=== PATIENT | female | born 1930 | race Caucasian/White ===

== ENCOUNTER 2016-09-30 17:28 | Emergency (ER) | payer OTHER ==
[~2016-09-30] VITALS: Ht 157.5 cm; Wt 60.1 kg
[~2016-09-30 17:28] MED LIST: ASPCH81 PO; ATOR10TA88 PO; CLTP PO; ESCI10TA17 PO; GLC500 PO; IBUP-1050 PO; PANT40TA PO
[2016-09-30 17:40] VITALS: TEMP 36.7; Ht 157.5 cm; Wt 60.1 kg
--- NOTE | 2016-09-30 18:03 | EMERGENCY ROOM VISIT NOTE ---
History Report prepared by Juan Diegoibe: Mary Henley Under the Supervision of: Dr. Facundo Fernandez M.D. First contact with patient: 17:45 Chief Complaint: NAUSEA Stated Complaint: NAUSEA, LIGHTHEADED, DIZZY Nursing Triage Summary: Pt arrives to ER via BLS from [facility] in [place]. Pt was seen there today for N/V and dizziness upon standing that began this AM. EMS pt "doubled up" on her medications yesterday, but were not told which medications. Upon arrival pt has no complaints. Pt has hx of dementia. AO to person and place. History of Present Illness The patient is a 85 year old female who presents to the Emergency Room with complaints of persistent generalized illness starting this morning. Per nursing staff, the patient arrived by EMS from [facility] in [place]. She was being seen there for nausea, vomiting and dizziness. The patient states that she feels "light headed" and her dizziness has not subsided. She denies any abdominal pain. Per nursing staff, the patient has a history of dementia. Source of History: patient Onset: This morning Quality: other (Generalized illness) Timing: other (persistent) Associated Symptoms: + nausea, + vomiting, + diarrhea, No abdominal pain Review of Systems See HPI for pertinent positives & negatives. A total of 10 systems reviewed and were otherwise negative. Past Medical & Surgical Medical Problems: (1) Dementia (2) Diverticulosis Colon (W/O Ment Of Hemorrhage) (3) Esophageal Reflux (4) Hypertension Nos (5) Sciatica Surgical Problems: (1) Hypertension Nos Family History No pertinent family history. Social History Smoking Status: Never Smoker Marital Status: Housing Status: lives with family Occupation Status: retired Current/Historical Medications Scheduled Atorvastatin (Atorvastatin Calcium), 20 MG PO DAILY Donepezil HCl (Donepezil HCl), 10 MG PO DAILY Lisinopril (Lisinopril), 10 MG PO DAILY Montelukast Sod (Montelukast Sodium), 10 MG PO DAILY Sulfa/Trimethoprim (Bactrim Ds 800MG/160MG), 0.5 TAB PO BID Allergies Coded Allergies: Estrogens (Verified Allergy, Unknown, `, 09/19/10) Nitrofurantoin (Verified Allergy, Unknown, Unknown, 09/30/16) Penicillins (Verified Allergy, Unknown, `, 09/19/10) Physical Exam Vital Signs Date Time Temp Pulse Resp B/P (MAP) Pulse Ox O2 Delivery O2 Flow Rate FiO2 09/30/16 20:04 61 20 129/54 99 09/30/16 20:00 61 20 129/54 99 Room Air 09/30/16 19:00 65 18 122/78 99 Room Air 09/30/16 18:04 99 Room Air 09/30/16 17:59 99 Room Air 09/30/16 17:59 62 20 132/60 99 67 125/67 80 113/58 09/30/16 17:44 65 09/30/16 17:40 36.7 67 18 122/57 99 Room Air Physical Exam GENERAL: Patient is a healthy-appearing well-nourished female HEAD: Normocephalic atraumatic EYES: Ocular movements intact pupils equal and react to light OROPHARYNX mucous membranes are moist no exudates present no erythema or edema present NECK: Supple no nuchal rigidity CHEST: Good equal expansion LUNGS: Clear and equal to auscultation CARDIAC: Normal S1 and S2 ABDOMEN: Soft nontender no guarding BACK: No CVA tenderness EXTREMITIES: No pain upon palpation normal muscle strength in all groups no clubbing cyanosis or edema NEURO: Patient is following commands and answering questions appropriately. Alert and oriented x3 Cranial Nerves 2-12 grossly intact Medical Decision & Procedures ER Provider Diagnostic Interpretation: X-ray results as stated below per interpretation by me and the radiologist: CHEST ONE VIEW PORTABLE HISTORY: 85 years-old Female acute weakness with nausea and dizziness. COMPARISON: Chest radiograph 10/27/2010, CTA chest 10/27/2010 TECHNIQUE: Portable upright AP view of the chest FINDINGS: Cardiomediastinal and hilar silhouettes are within normal limits. There is atherosclerosis of the aorta. Minimal pleural parenchymal biapical scarring is redemonstrated. No pneumothorax, pleural effusion or focal airspace consolidation. The bones appear to be grossly intact. Multilevel endplate spurring is seen throughout the spine. IMPRESSION: No acute cardiopulmonary process. The above report was generated using voice recognition software. It may contain grammatical, syntax or spelling errors. Electronically signed by: Óscar Valle M.D. Laboratory Results 09/30/16 17:55 Red Blood Count 4.37, Mean Corpuscular Volume 86.3, Mean Corpuscular Hemoglobin 29.5, Mean Corpuscular Hemoglobin Concent 34.2, Mean Platelet Volume 9.3, Neutrophils (%) (Auto) 52.9, Lymphocytes (%) (Auto) 35.4, Monocytes (%) (Auto) 9.4, Eosinophils (%) (Auto) 1.6, Basophils (%) (Auto) 0.5, Neutrophils # (Auto) 3.03, Lymphocytes # (Auto) 2.03, Monocytes # (Auto) 0.54, Eosinophils # (Auto) 0.09, Basophils # (Auto) 0.03 09/30/16 17:55 Test 09/30/16 17:55 09/30/16 18:00 09/30/16 18:08 White Blood Count 5.73 K/uL (4.8-10.8) Red Blood Count 4.37 M/uL (4.2-5.4) Hemoglobin 12.9 g/dL (12.0-16.0) Hematocrit 37.7 % (37-47) Mean Corpuscular Volume 86.3 fL (80-100) Mean Corpuscular Hemoglobin 29.5 pg (25-34) Mean Corpuscular Hemoglobin Concent 34.2 g/dl (32-36) Platelet Count 188 K/uL (130-400) Mean Platelet Volume 9.3 fL (7.4-10.4) Neutrophils (%) (Auto) 52.9 % Lymphocytes (%) (Auto) 35.4 % Monocytes (%) (Auto) 9.4 % Eosinophils (%) (Auto) 1.6 % Basophils (%) (Auto) 0.5 % Neutrophils # (Auto) 3.03 K/uL (1.4-6.5) Lymphocytes # (Auto) 2.03 K/uL (1.2-3.4) Monocytes # (Auto) 0.54 K/uL (0.11-0.59) Eosinophils # (Auto) 0.09 K/uL (0-0.5) Basophils # (Auto) 0.03 K/uL (0-0.2) RDW Standard Deviation 42.1 fL (36.4-46.3) RDW Coefficient of Variation 13.3 % (11.5-14.5) Immature Granulocyte % (Auto) 0.2 % Immature Granulocyte # (Auto) 0.01 K/uL (0.00-0.02) Prothrombin Time 10.8 SECONDS (9.0-12.0) Prothromb Time International Ratio 1.0 (0.9-1.1) Anion Gap 10.0 mmol/L (3-11) Est Creatinine Clear Calc Drug Dose 26.1 ml/min Estimated GFR () 47.1 Estimated GFR (Non- 40.6 BUN/Creatinine Ratio 12.2 (10-20) Calcium Level 9.4 mg/dl (8.5-10.1) Total Bilirubin 0.5 mg/dl (0.2-1) Direct Bilirubin 0.1 mg/dl (0-0.2) Aspartate Amino Transf (AST/SGOT) 31 U/L (15-37) Alanine Aminotransferase (ALT/SGPT) 56 U/L (12-78) Alkaline Phosphatase 77 U/L (45-117) Total Creatine Kinase 31 U/L (26-192) Creatine Kinase MB 0.9 ng/ml (0.5-3.6) Creatine Kinase MB Ratio 2.9 (0-3.0) Troponin I 0.024 ng/ml (0-0.045) Total Protein 7.2 gm/dl (6.4-8.2) Albumin 3.7 gm/dl (3.4-5.0) Thyroid Stimulating Hormone (TSH) 4.380 uIu/ml (0.300-4.500) Urine Color YELLOW Urine Appearance CLEAR (CLEAR) Urine pH 8.5 (4.5-7.5) Urine Specific [place] 1.006 (1.000-1.030) Urine Protein NEG (NEG) Urine Glucose (UA) NEG (NEG) Urine Ketones NEG (NEG) Urine Occult Blood 1+ (NEG) Urine Nitrite NEG (NEG) Urine Bilirubin NEG (NEG) Urine Urobilinogen NEG (NEG) Urine Leukocyte Esterase TRACE (NEG) Urine WBC (Auto) 1-5 /hpf (0-5) Urine RBC (Auto) 0-4 /hpf (0-4) Urine Hyaline Casts (Auto) 0 /lpf (0-5) Urine Epithelial Cells (Auto) 5-10 /lpf (0-5) Urine Bacteria (Auto) NEG (NEG) Bedside Glucose 96 mg/dl (70-90) Labs reviewed by ED physician. Medications Administered Medications (Trade) Dose Ordered Sig/Johanne Route Start Time Stop Time Status Last Admin Dose Admin Sodium Chloride 1,000 ml @ 999 mls/hr Q1H1M STAT IV 09/30/16 18:07 09/30/16 19:07 DC 09/30/16 18:31 999 MLS/HR ECG Indication: other (generalized illness) Rate (beats per minute): 64 Rhythm: atrial flutter (new onset) Findings: T-wave inversion (in the lateral leads), no acute ischemic change ED Course 1747: Past medical records reviewed. The patient was evaluated in room A2. A complete history and physical examination was performed. 1806: Ordered Sodium Chloride 1000 ml @ 999 mls/hr. 1937: Upon reexamination the patient is resting. I discussed results and treatment plan with the patient. She verbalizes agreement and understanding. The patient is ready for discharge. Medical Decision Differential diagnosis: Etiologies such as metabolic, infection, hypo/hyperglycemia, electrolyte abnormalities, cardiac sources, intracerebral event, toxicologic, neurologic, as well as others were entertained. This is an 85-year-old female who presents emergency department complaining of dizziness however upon arrival to the emergency department the patient has no complaints. Her son is concerned that the patient may have a urinary tract infection. An IV was established, patient given normal saline bolus. The patient does not have any evidence of infection in her urine and her son is comfortable taking her home at this point. The patient does not wish to be admitted. I believe that is reasonable. Patient was in agreement with the treatment plan. Impression Primary Impression: Dehydration Scribe Attestation The scribe's documentation has been prepared under my direction and personally reviewed by me in its entirety. I confirm that the note above accurately reflects all work, treatment, procedures, and medical decision making performed by me. Departure Information Dispostion Home / Self-Care Referrals Jil Gandhi N.P. (PCP) Forms HOME CARE DOCUMENTATION FORM, IMPORTANT VISIT INFORMATION Patient Instructions ED Dehydration, My [facility] Additional Instructions Follow up with PCP Cultures are usually available in 48 hours Increase fluid intake next 48 hours You have been examined and treated today on an emergency basis only. This is not a substitute for, or an effort to provide, complete comprehensive medical care. It is impossible to recognize and treat all injuries or illnesses in a single emergency department visit. It is therefore important that you follow up closely with your PCP. Call as soon as possible for an appointment. Thank you for your time and consideration. I look forward to speaking with you again soon. Please don't hesitate to call us if you have any questions.
[2016-09-30 18:04] VITALS: O2SAT 99
[2016-09-30] MEDS ORDERED: SODIUM CHLORIDE 0.9% 1000ML 1,000 ML IV STA (18:07)
[2016-09-30 18:09] LABS: BASO % 0.5 %; BASO ABS # 0.03 K/uL (0-0.2); COMPLETE YES; EOS % 1.6 %; HEMATOCRIT 37.7 % (37-47); IG% 0.2 %; LYMPH % 35.4 %; LYMPH ABS # 2.03 K/uL (1.2-3.4); MEAN CELL VOLUME 86.3 fL (80-100); MEAN CORPUSCULAR HEMOGLOBIN 29.5 pg (25-34); MEAN CORPUSCULAR HGB CONC 34.2 g/dl (32-36); MEAN PLATELET VOLUME 9.3 fL (7.4-10.4); MONO % 9.4 %; NEUT % 52.9 %; PLATELET COUNT 188 K/uL (130-400); RED BLOOD COUNT 4.37 M/uL (4.2-5.4); WHITE BLOOD COUNT 5.73 K/uL (4.8-10.8)
--- NOTE | 2016-09-30 18:20 | DIAGNOSTIC IMAGING REPORT ---
CHEST ONE VIEW PORTABLE HISTORY: 85 years-old Female acute weakness with nausea and dizziness. COMPARISON: Chest radiograph 10/27/2010, CTA chest 10/27/2010 TECHNIQUE: Portable upright AP view of the chest FINDINGS: Cardiomediastinal and hilar silhouettes are within normal limits. There is atherosclerosis of the aorta. Minimal pleural parenchymal biapical scarring is redemonstrated. No pneumothorax, pleural effusion or focal airspace consolidation. The bones appear to be grossly intact. Multilevel endplate spurring is seen throughout the spine. IMPRESSION: No acute cardiopulmonary process. The above report was generated using voice recognition software. It may contain grammatical, syntax or spelling errors. Electronically signed by: Óscar Valle M.D. 09/30/2016 6:19 PM Dictated Date/Time: 09/30/2016 6:17 PM
[2016-09-30 18:24] LABS: BUN/CREATININE RATIO 12.2 (10-20); CALCIUM 9.4 mg/dl (8.5-10.1); CREATININE 1.2 mg/dl (0.60-1.20); POTASSIUM 3.8 mmol/L (3.5-5.1)
[2016-09-30 18:25] LABS: PROTHROMBIN TIME (PATIENT) 10.8 SECONDS (9.0-12.0)
[2016-09-30] MEDS ORDERED: LPT/20 PO (18:28)
[2016-09-30] MEDS ORDERED: ARC10 PO (18:28)
[2016-09-30] MEDS ORDERED: LISI-461 PO (18:28)
[2016-09-30] MEDS ORDERED: SNG10 PO (18:28)
[2016-09-30 18:35] LABS: CKMB/CK RATIO 2.9 (0-3.0); THYROID STIMULATING HORMONE 4.38 uIu/ml (0.300-4.500)
[2016-09-30] MEDS ORDERED: SULF800T23 PO (18:38)
[2016-09-30 18:46] LABS: URINE APPEARANCE CLEAR (CLEAR); URINE BILIRUBIN NEG (NEG); URINE COLOR YELLOW; URINE NITRITE NEG (NEG); URINE PH 8.5 (4.5-7.5); URINE SPECIFIC GRAVITY 1.006 (1.000-1.030); UROBILINOGEN NEG (NEG)
[2016-09-30 19:04] LABS: MANUAL MICROSCOPIC REQUIRED? NO; REVIEW REQ? NO
[2016-09-30 20:04] VITALS: BP 129/54; PULSE 61; O2SAT 99
== END 2016-09-30 20:08 | disposition home or self-care (01) ==
LOC: EDBD 17:28 → C.EDA 17:28
DX: E86.0 Dehydration (principal); R11.2 Nausea with vomiting, unspecified; R42 Dizziness and giddiness; I10 Essential (primary) hypertension

== ENCOUNTER 2016-11-02 19:57 | Emergency (ER) | payer OTHER ==
[~2016-11-02] VITALS: Ht 157.5 cm; Wt 60.5 kg
[~2016-11-02 19:57] MED LIST changes: +ARC10 PO; -ASPCH81 PO; -ATOR10TA88 PO; -CLTP PO; -ESCI10TA17 PO; -GLC500 PO; -IBUP-1050 PO; +LISI-461 PO; +LPT/20 PO; -PANT40TA PO; +SNG10 PO; +SULF800T23 PO
[2016-11-02 20:06] VITALS: TEMP 36.6; Ht 157.5 cm; Wt 60.5 kg
[2016-11-02] MEDS ORDERED: CALCTAB5 PO (20:17)
[2016-11-02] MEDS ORDERED: MULTCHW PO (20:17)
[2016-11-02] MEDS ORDERED: CHOL1000 PO (20:17)
[2016-11-02] MEDS ORDERED: COEN1CAP7 PO (20:17)
[2016-11-02] MEDS ORDERED: ZNTT/150 PO (20:18)
[2016-11-02] MEDS ORDERED: ONDANSETRON INJ 2 MG/ML 2 ML VIAL IV STA (20:26)
[2016-11-02] MEDS ORDERED: SODIUM CHLORIDE 0.9% 500ML 500 ML IV STA (20:26)
--- NOTE | 2016-11-02 20:29 | EMERGENCY ROOM VISIT NOTE ---
History Report prepared by Mirella: Juana See Under the Supervision of: Dr. Facundo Fernandez M.D. First contact with patient: 20:18 Chief Complaint: ABDOMINAL PAIN Stated Complaint: SICK IN STOMACH Nursing Triage Summary: Pt c/o nausea, diarrhea since 1700 lance. shaking, weak. "We think she's dehydrated again". Seen in ED about a month ago for the same. History of Present Illness The patient is a 85 year old female who presents to the Emergency Room with complaints of constant nausea beginning this afternoon. The patient states that she has not been feeling well today and has been having some diarrhea, dizziness , and lightheadedness. She reports that she was seen here 1 month ago for dehydration and had similar symptoms. She notes that she has not been drinking as much water in the last few days. The patient denies any vomiting and abdominal pain. The patient's son reports that she recently saw her fitter welder that noted a slight palpitation. Source of History: patient, family Onset: today Position: other (global) Quality: other (nausea) Timing: constant Associated Symptoms: + diarrhea, No vomiting, No abdominal pain Note: Pt notes dizziness, and lightheadedness. Review of Systems See HPI for pertinent positives & negatives. A total of 10 systems reviewed and were otherwise negative. Past Medical & Surgical Medical Problems: (1) Dementia (2) Diverticulosis Colon (W/O Ment Of Hemorrhage) (3) Esophageal Reflux (4) Hypertension Nos (5) Sciatica Surgical Problems: (1) Hypertension Nos Family History No pertinent family history stated. Social History Smoking Status: Never Smoker Marital Status: Housing Status: lives with family Occupation Status: retired Current/Historical Medications Scheduled Atorvastatin (Atorvastatin Calcium), 20 MG PO DAILY Calcium Carbonate (Caltrate 600), 1,500 MG PO DAILY Cholecalciferol (Vitamin D3), 1,000 INTER.UNIT PO BID Coenzyme Q10 (Ubidecarenone) (Coq10), 200 MG PO DAILY Donepezil HCl (Donepezil HCl), 10 MG PO DAILY Lisinopril (Lisinopril), 10 MG PO DAILY Montelukast Sod (Montelukast Sodium), 10 MG PO DAILY Multiple Vitamins W/ Minerals (Centrum Silver), 1 TAB PO DAILY Ondasetron Odt (Zofran Odt), 4 MG SL Q6H Ranitidine (Zantac), 150 MG PO QAM Sulfa/Trimethoprim (Bactrim Ds 800MG/160MG), 0.5 TAB PO QAM Allergies Coded Allergies: Estrogens (Verified Allergy, Unknown, `, 11/02/16) Nitrofurantoin (Verified Allergy, Unknown, Unknown, 11/02/16) Penicillins (Verified Allergy, Unknown, `, 11/02/16) Physical Exam Vital Signs Date Time Temp Pulse Resp B/P (MAP) Pulse Ox O2 Delivery O2 Flow Rate FiO2 11/02/16 22:51 82 18 116/49 97 11/02/16 21:43 66 20 158/80 97 Room Air 11/02/16 21:05 67 11/02/16 20:54 68 16 133/53 98 Room Air 11/02/16 20:42 95 Room Air 11/02/16 20:06 36.6 77 16 133/67 96 Room Air Physical Exam GENERAL: Patient is a healthy-appearing well-nourished female HEAD: Normocephalic atraumatic EYES: Ocular movements intact pupils equal and react to light OROPHARYNX mucous membranes are moist no exudates present no erythema or edema present NECK: Supple no nuchal rigidity CHEST: Good equal expansion LUNGS: Clear and equal to auscultation CARDIAC: Normal S1 and S2 ABDOMEN: Soft nontender no guarding BACK: No CVA tenderness EXTREMITIES: No pain upon palpation normal muscle strength in all groups no clubbing cyanosis or edema NEURO: Patient is following commands and answering questions appropriately. Alert and oriented x3 Cranial Nerves 2-12 grossly intact Medical Decision & Procedures ER Provider Diagnostic Interpretation: X-ray results as stated below per interpretation by me and the radiologist: CHEST AND ABDOMEN 2 VIEWS FINDINGS: The lungs are clear. The cardiomediastinal silhouette is within normal limits. There is no pneumoperitoneum or pneumatosis. The bowel gas pattern is unremarkable. No evidence for bowel obstruction. A 7 mm calcification overlying the upper pole the right kidney. This likely represents a stone. There is also suggestion of a 3 mm calcification overlying the upper pole the left kidney. This may also represent a small stone. No ureteral calculi. Changes within the lower lumbar spine. IMPRESSION: No acute cardiopulmonary process. No evidence for bowel obstruction. Bilateral nephrolithiasis. No ureteral calculi. Electronically signed by: Amado Oviedo M.D. 11/02/2016 9:54 PM Dictated Date/Time: 11/02/2016 9:50 PM Laboratory Results 11/02/16 20:35 Red Blood Count 4.25, Mean Corpuscular Volume 88.2, Mean Corpuscular Hemoglobin 28.5, Mean Corpuscular Hemoglobin Concent 32.3, Mean Platelet Volume 9.3, Neutrophils (%) (Auto) 49.8, Lymphocytes (%) (Auto) 34.9, Monocytes (%) (Auto) 11.4, Eosinophils (%) (Auto) 2.9, Basophils (%) (Auto) 0.8, Neutrophils # (Auto ) 2.59, Lymphocytes # (Auto) 1.81, Monocytes # (Auto) 0.59, Eosinophils # (Auto ) 0.15, Basophils # (Auto) 0.04 11/02/16 20:35 Test 11/02/16 20:35 11/02/16 21:35 White Blood Count 5.19 K/uL (4.8-10.8) Red Blood Count 4.25 M/uL (4.2-5.4) Hemoglobin 12.1 g/dL (12.0-16.0) Hematocrit 37.5 % (37-47) Mean Corpuscular Volume 88.2 fL (80-100) Mean Corpuscular Hemoglobin 28.5 pg (25-34) Mean Corpuscular Hemoglobin Concent 32.3 g/dl (32-36) Platelet Count 193 K/uL (130-400) Mean Platelet Volume 9.3 fL (7.4-10.4) Neutrophils (%) (Auto) 49.8 % Lymphocytes (%) (Auto) 34.9 % Monocytes (%) (Auto) 11.4 % Eosinophils (%) (Auto) 2.9 % Basophils (%) (Auto) 0.8 % Neutrophils # (Auto) 2.59 K/uL (1.4-6.5) Lymphocytes # (Auto) 1.81 K/uL (1.2-3.4) Monocytes # (Auto) 0.59 K/uL (0.11-0.59) Eosinophils # (Auto) 0.15 K/uL (0-0.5) Basophils # (Auto) 0.04 K/uL (0-0.2) RDW Standard Deviation 43.6 fL (36.4-46.3) RDW Coefficient of Variation 13.6 % (11.5-14.5) Immature Granulocyte % (Auto) 0.2 % Immature Granulocyte # (Auto) 0.01 K/uL (0.00-0.02) Anion Gap 4.0 mmol/L (3-11) Est Creatinine Clear Calc Drug Dose 38.6 ml/min Estimated GFR () 68.5 Estimated GFR (Non- 59.1 BUN/Creatinine Ratio 19.2 (10-20) Calcium Level 9.0 mg/dl (8.5-10.1) Total Bilirubin 0.3 mg/dl (0.2-1) Direct Bilirubin 0.1 mg/dl (0-0.2) Aspartate Amino Transf (AST/SGOT) 42 U/L (15-37) Alanine Aminotransferase (ALT/SGPT) 56 U/L (12-78) Alkaline Phosphatase 86 U/L (45-117) Total Creatine Kinase 29 U/L (26-192) Creatine Kinase MB 0.9 ng/ml (0.5-3.6) Creatine Kinase MB Ratio 3.1 (0-3.0) Troponin I 0.038 ng/ml (0-0.045) Total Protein 6.9 gm/dl (6.4-8.2) Albumin 3.5 gm/dl (3.4-5.0) Lipase 136 U/L (73-393) Urine Color YELLOW Urine Appearance CLEAR (CLEAR) Urine pH 6.5 (4.5-7.5) Urine Specific [place] 1.011 (1.000-1.030) Urine Protein NEG (NEG) Urine Glucose (UA) NEG (NEG) Urine Ketones NEG (NEG) Urine Occult Blood NEG (NEG) Urine Nitrite NEG (NEG) Urine Bilirubin NEG (NEG) Urine Urobilinogen NEG (NEG) Urine Leukocyte Esterase TRACE (NEG) Urine WBC (Auto) 1-5 /hpf (0-5) Urine RBC (Auto) 0-4 /hpf (0-4) Urine Hyaline Casts (Auto) 0 /lpf (0-5) Urine Epithelial Cells (Auto) 5-10 /lpf (0-5) Urine Bacteria (Auto) NEG (NEG) Labs reviewed by ED physician. Medications Administered Medications (Trade) Dose Ordered Sig/Johanne Route Start Time Stop Time Status Last Admin Dose Admin Sodium Chloride 500 ml @ 999 mls/hr Q31M STAT IV 11/02/16 20:26 11/02/16 20:56 DC 11/02/16 20:42 999 MLS/HR Ondansetron HCl (Zofran Inj) 4 mg NOW STAT IV 11/02/16 20:26 11/02/16 20:28 DC 11/02/16 20:40 4 MG Ondansetron HCl (ZOFRAN ODT 4MG Home Pack) 1 homepack UD ONCE PO 11/02/16 22:45 11/02/16 22:46 DC 11/02/16 22:45 1 HOMEPACK ECG Indication: abdominal pain Rate (beats per minute): 69 Rhythm: normal sinus Findings: no acute ischemic change, no ectopy ED Course 2018: Past medical records reviewed. The patient was evaluated in room C8. A complete history and physical examination was performed. 2025: Zofran Inj 4mg IV, Sodium Chloride 500 ml @ 999 mls/hr IV. 2244: Ondansetron HCl 1 homepack PO. 2236: Upon reexamination the patient is doing well. I discussed results and treatment plan with the patient. She verbalizes agreement and understanding. The patient is ready for discharge. Medical Decision Differential diagnosis: Etiologies such as appendicitis, diverticulitis, PUD, biliary pathology, UTI, pancreatitis, obstruction, mesenteric ischemia, aortic pathology, infections, inflammatory bowel disease, renal colic, as well as others were entertained. This is a 85-year-old feel who presents emergency department complaining of nausea. Serial abdominal examinations were performed on the patient in the emergency department and at no time did the patient exhibit surgical abdomen. In addition the patient is afebrile and does not have an elevation in her white blood count cell count. She has a normal renal profile normal liver profile normal EKG normal CK-MB and troponin. The patient was given a fluid bolus here in the emergency department and started on Zofran. Repeat examination revealed much improvement the patient's symptoms. I do feel that the patient can be safely discharged home for follow-up with her primary care physician. Both patient and family were in agreement with the treatment plan. Medication Reconcilliation Current Medication List: was personally reviewed by me Blood Pressure Screening Patient's blood pressure: Elevated blood pressure Blood pressure disposition: Elevated BP felt to be situational Impression Primary Impression: Nausea Scribe Attestation The scribe's documentation has been prepared under my direction and personally reviewed by me in its entirety. I confirm that the note above accurately reflects all work, treatment, procedures, and medical decision making performed by me. Departure Information Dispostion Home / Self-Care Prescriptions Ondasetron Odt (ZOFRAN ODT) 4 Mg Tab 4 MG SL Q6H for Nausea, #6 TAB Prov: Facundo Fernandez MD 11/02/16 Referrals Jil Gandhi N.P. (PCP) Forms HOME CARE DOCUMENTATION FORM, IMPORTANT VISIT INFORMATION Patient Instructions ED Nausea Vomiting, My [facility] Additional Instructions You were found to have an elevated blood pressure today (>120 sytolic or >90 diastolic). Per medicare guidelines, you need to follow up with this blood pressure screening with your Primary Care Physician (PCP). For a new PCP call [phone]. You have been examined and treated today on an emergency basis only. This is not a substitute for, or an effort to provide, complete comprehensive medical care. It is impossible to recognize and treat all injuries or illnesses in a single emergency department visit. It is therefore important that you follow up closely with Dr Rich. Call as soon as possible for an appointment. Thank you for your time and consideration. I look forward to speaking with you again soon. Please don't hesitate to call us if you have any questions.
[2016-11-02 20:42] VITALS: O2SAT 95
[2016-11-02 20:45] LABS: BASO % 0.8 %; BASO ABS # 0.04 K/uL (0-0.2); COMPLETE YES; EOS % 2.9 %; HEMATOCRIT 37.5 % (37-47); IG% 0.2 %; LYMPH % 34.9 %; LYMPH ABS # 1.81 K/uL (1.2-3.4); MEAN CELL VOLUME 88.2 fL (80-100); MEAN CORPUSCULAR HEMOGLOBIN 28.5 pg (25-34); MEAN CORPUSCULAR HGB CONC 32.3 g/dl (32-36); MEAN PLATELET VOLUME 9.3 fL (7.4-10.4); MONO % 11.4 %; NEUT % 49.8 %; PLATELET COUNT 193 K/uL (130-400); RED BLOOD COUNT 4.25 M/uL (4.2-5.4); WHITE BLOOD COUNT 5.19 K/uL (4.8-10.8)
[2016-11-02 21:09] LABS: BUN/CREATININE RATIO 19.2 (10-20); CREATININE 0.88 mg/dl (0.60-1.20); POTASSIUM 3.8 mmol/L (3.5-5.1)
[2016-11-02 21:14] LABS: CKMB/CK RATIO 3.1 (0-3.0)
--- NOTE | 2016-11-02 21:56 | DIAGNOSTIC IMAGING REPORT ---
CHEST AND ABDOMEN 2 VIEWS HISTORY: Pt c/o nausea COMPARISON: Chest 09/30/2016. FINDINGS: The lungs are clear. The cardiomediastinal silhouette is within normal limits. There is no pneumoperitoneum or pneumatosis. The bowel gas pattern is unremarkable. No evidence for bowel obstruction. A 7 mm calcification overlying the upper pole the right kidney. This likely represents a stone. There is also suggestion of a 3 mm calcification overlying the upper pole the left kidney. This may also represent a small stone. No ureteral calculi. Changes within the lower lumbar spine. IMPRESSION: No acute cardiopulmonary process. No evidence for bowel obstruction. Bilateral nephrolithiasis. No ureteral calculi. Electronically signed by: Amado Oviedo M.D. 11/02/2016 9:54 PM Dictated Date/Time: 11/02/2016 9:50 PM
[2016-11-02 22:03] LABS: URINE APPEARANCE CLEAR (CLEAR); URINE BILIRUBIN NEG (NEG); URINE COLOR YELLOW; URINE NITRITE NEG (NEG); URINE PH 6.5 (4.5-7.5); URINE SPECIFIC GRAVITY 1.011 (1.000-1.030); UROBILINOGEN NEG (NEG)
[2016-11-02 22:05] LABS: MANUAL MICROSCOPIC REQUIRED? NO; REVIEW REQ? YES
[2016-11-02 22:08] LABS: ZZUR CULT IF INDIC CLEAN CATCH NO
[2016-11-02] MEDS ORDERED: ONDA4TAB10 SL (22:32)
[2016-11-02] MEDS ORDERED: ONDANSETRON HOME PACK 4MG OD TAB PO ONE (22:45)
[2016-11-02 22:51] VITALS: BP 116/49; PULSE 82; O2SAT 97
== END 2016-11-02 22:53 | disposition home or self-care (01) ==
LOC: C.EDB 19:57 → C.EDC 22:53
DX: R11.0 Nausea (principal); K21.9 Gastro-esophageal reflux disease without esophagitis; I10 Essential (primary) hypertension; Z79.899 Other long term (current) drug therapy

== ENCOUNTER 2016-11-03 20:30 | Emergency (ER) | payer OTHER ==
[~2016-11-03] VITALS: Ht 157.5 cm; Wt 60.6 kg
[~2016-11-03 20:30] MED LIST changes: +CALCTAB5 PO; +CHOL1000 PO; +COEN1CAP7 PO; +MULTCHW PO; +ONDA4TAB10 SL; +ZNTT/150 PO
[2016-11-03 20:53] VITALS: TEMP 36.7; Ht 157.5 cm; Wt 60.6 kg
[2016-11-03] MEDS ORDERED: ONDANSETRON INJ 2 MG/ML 2 ML VIAL IV STA (21:39)
[2016-11-03] MEDS ORDERED: SODIUM CHLORIDE 0.9% 1000ML 1,000 ML IV STA (21:39)
[2016-11-03] MEDS ORDERED: OPTIRAY 320 IV PRN (22:00)
--- NOTE | 2016-11-03 22:06 | EMERGENCY ROOM VISIT NOTE ---
History First contact with patient: 21:01 Chief Complaint: NAUSEA Stated Complaint: SICK TO STOMACH,SHAKING Nursing Triage Summary: patient states she felt weak , cold, and nauseated prior to arrival. patient states she was here yesterday and treated for dehydration. patient thought BSG was low but checked it at home and it was 132. History of Present Illness The patient is a 85 year old female who presents to the Emergency Room with complaints of episode of acute onset nausea with chills 2 hours prior to arrival her chest since resolved upon arrival to the emergency department. Occurs in the setting of being seen yesterday for nausea vomiting and diarrhea for the past several days diagnosed with dehydration and discharged after feeling improved. Other than this episode, reports that she woke up this morning feeling improved had breakfast and lunch about difficulty. Otherwise denies cough congestion, chest pain, shortness of breath. Review of Systems See HPI for pertinent positives and negatives. A total of ten systems were reviewed and were otherwise negative. Past Medical/Surgical History Medical Problems: (1) Dementia (2) Diverticulosis Colon (W/O Ment Of Hemorrhage) (3) Esophageal Reflux (4) Hypertension Nos (5) Sciatica Surgical Problems: (1) Hypertension Nos Social History Smoking Status: Never Smoker Marital Status: Housing Status: lives with family Occupation Status: retired Current/Historical Medications Scheduled Atorvastatin (Atorvastatin Calcium), 20 MG PO DAILY Calcium Carbonate (Caltrate 600), 1,500 MG PO DAILY Cholecalciferol (Vitamin D3), 1,000 INTER.UNIT PO BID Coenzyme Q10 (Ubidecarenone) (Coq10), 200 MG PO DAILY Donepezil HCl (Donepezil HCl), 10 MG PO DAILY Lisinopril (Lisinopril), 10 MG PO DAILY Montelukast Sod (Montelukast Sodium), 10 MG PO DAILY Multiple Vitamins W/ Minerals (Centrum Silver), 1 TAB PO DAILY Ondasetron Odt (Zofran Odt), 4 MG SL Q6H Ranitidine (Zantac), 150 MG PO QAM Sulfa/Trimethoprim (Bactrim Ds 800MG/160MG), 0.5 TAB PO QAM Physical Exam Vital Signs Date Time Temp Pulse Resp B/P (MAP) Pulse Ox O2 Delivery O2 Flow Rate FiO2 11/03/16 23:24 66 20 143/63 95 Room Air 11/03/16 22:13 63 20 153/58 99 Room Air 11/03/16 21:55 Room Air 11/03/16 21:23 65 11/03/16 20:53 36.7 76 20 170/64 96 Room Air Physical Exam GENERAL: Awake, alert, well-appearing, in no distress HENT: Normocephalic, atraumatic. Oropharynx dry mm, otherwise unremarkable. EYES: Normal conjunctiva. Sclera non-icteric. NECK: Supple. No nuchal rigidity. FROM. No JVD. RESPIRATORY: Clear to auscultation. CARDIAC: Regular rate, normal rhythm. Extremities warm and well perfused. Pulses equal. ABDOMEN: Soft, non-distended. No tenderness to palpation. No rebound or guarding. No masses. RECTAL: Deferred. MUSCULOSKELETAL: Chest examination reveals no tenderness. The back is symmetrical on inspection without obvious abnormality. There is no CVA tenderness to palpation. No joint edema. LOWER EXTREMITIES: Calves are equal size bilaterally and non-tender. No edema. No discoloration. NEURO: Normal sensorium. No sensory or motor deficits noted. SKIN: No rash or jaundice noted. Medical Decision & Procedures Laboratory Results 11/03/16 21:55 Red Blood Count 4.14, Mean Corpuscular Volume 87.7, Mean Corpuscular Hemoglobin 28.7, Mean Corpuscular Hemoglobin Concent 32.8, Mean Platelet Volume 9.5, Neutrophils (%) (Auto) 55.6, Lymphocytes (%) (Auto) 31.2, Monocytes (%) (Auto) 10.3, Eosinophils (%) (Auto) 1.9, Basophils (%) (Auto) 0.7, Neutrophils # (Auto ) 3.23, Lymphocytes # (Auto) 1.81, Monocytes # (Auto) 0.60, Eosinophils # (Auto ) 0.11, Basophils # (Auto) 0.04 11/03/16 21:55 Test 11/03/16 21:55 11/03/16 22:09 White Blood Count 5.81 K/uL (4.8-10.8) Red Blood Count 4.14 M/uL (4.2-5.4) Hemoglobin 11.9 g/dL (12.0-16.0) Hematocrit 36.3 % (37-47) Mean Corpuscular Volume 87.7 fL (80-100) Mean Corpuscular Hemoglobin 28.7 pg (25-34) Mean Corpuscular Hemoglobin Concent 32.8 g/dl (32-36) Platelet Count 186 K/uL (130-400) Mean Platelet Volume 9.5 fL (7.4-10.4) Neutrophils (%) (Auto) 55.6 % Lymphocytes (%) (Auto) 31.2 % Monocytes (%) (Auto) 10.3 % Eosinophils (%) (Auto) 1.9 % Basophils (%) (Auto) 0.7 % Neutrophils # (Auto) 3.23 K/uL (1.4-6.5) Lymphocytes # (Auto) 1.81 K/uL (1.2-3.4) Monocytes # (Auto) 0.60 K/uL (0.11-0.59) Eosinophils # (Auto) 0.11 K/uL (0-0.5) Basophils # (Auto) 0.04 K/uL (0-0.2) RDW Standard Deviation 43.8 fL (36.4-46.3) RDW Coefficient of Variation 13.6 % (11.5-14.5) Immature Granulocyte % (Auto) 0.3 % Immature Granulocyte # (Auto) 0.02 K/uL (0.00-0.02) Anion Gap 9.0 mmol/L (3-11) Est Creatinine Clear Calc Drug Dose 40.5 ml/min Estimated GFR () 72.4 Estimated GFR (Non- 62.5 BUN/Creatinine Ratio 22.5 (10-20) Lactic Acid Level 1.1 mmol/L (0.4-2.0) Calcium Level 9.2 mg/dl (8.5-10.1) Total Bilirubin 0.3 mg/dl (0.2-1) Direct Bilirubin 0.1 mg/dl (0-0.2) Aspartate Amino Transf (AST/SGOT) 33 U/L (15-37) Alanine Aminotransferase (ALT/SGPT) 49 U/L (12-78) Alkaline Phosphatase 85 U/L (45-117) Troponin I 0.035 ng/ml (0-0.045) Total Protein 6.9 gm/dl (6.4-8.2) Albumin 3.5 gm/dl (3.4-5.0) Lipase 128 U/L (73-393) Urine Color YELLOW Urine Appearance CLEAR (CLEAR) Urine pH 6.5 (4.5-7.5) Urine Specific [place] 1.007 (1.000-1.030) Urine Protein NEG (NEG) Urine Glucose (UA) NEG (NEG) Urine Ketones NEG (NEG) Urine Occult Blood TRACE (NEG) Urine Nitrite NEG (NEG) Urine Bilirubin NEG (NEG) Urine Urobilinogen NEG (NEG) Urine Leukocyte Esterase NEG (NEG) Urine WBC (Auto) 1-5 /hpf (0-5) Urine RBC (Auto) 0-4 /hpf (0-4) Urine Hyaline Casts (Auto) 0 /lpf (0-5) Urine Epithelial Cells (Auto) 0-5 /lpf (0-5) Urine Bacteria (Auto) NEG (NEG) Medications Administered Medications (Trade) Dose Ordered Sig/Johanne Route Start Time Stop Time Status Last Admin Dose Admin Ondansetron HCl (Zofran Inj) 4 mg NOW STAT IV 11/03/16 21:39 11/03/16 21:42 DC 11/03/16 21:57 4 MG Sodium Chloride 1,000 ml @ 999 mls/hr Q1H1M STAT IV 11/03/16 21:39 11/03/16 22:39 DC 11/03/16 21:57 999 MLS/HR ECG Indication: nausea Rhythm: normal sinus Findings: 1st degree AV block Comparison ECG Date: Change: no significant change (11/02/2016) ED Course 0940: I evaluated the patient. Medical Decision I reviewed the patient's past medical history, medications, and the nursing notes as described above. DDX: Gastroenteritis, ACS, diverticulitis, SBO, gastritis, biliary etiology, pneumonia, UTI, dehydration, electrolyte abnormalities The patient is an 85-year-old woman who presents to the emergency department with episode of nausea and chills in the setting of diarrhea per history of present illness. The patient reports resolution of symptoms is in no acute distress, afebrile with stable vital signs. On exam the patient appears clinically dry and otherwise her abdomen is soft and nontender. However considering the patient's repeat visit in the setting of this acute episode we' ll repeat labs and obtain CT scan of her abdomen. Additionally will evaluate for ACS with single troponin considering episode was approximately 5 hours prior to arrival. Will treat symptomatically with IV fluid hydration and reassess. EKG is unremarkable. Troponin negative. Labs otherwise unremarkable including WBC, lactate within normal limits. CT shows 8 mm stone in the right renal pelvis without hydromorphone or signs of obstruction. UA negative for infection. Patient asymptomatic during her ED observation. Symptoms most likely related to resolving gastroenteritis. Findings and plan for follow-up d/ w patient. Patient agreeable and d/c'd per discharge instructions. Impression Primary Impression: Gastroenteritis Departure Information Dispostion Home / Self-Care Referrals Nia Rich PA-C (PCP) Patient Instructions Dehydration, ED Food Poison Or Gastroenteritis, My [facility] Additional Instructions Please follow up with your primary care physician in the next 1-3 days for re- evaluation. You likely have gastroenteritis that should continue to improve with time. Otherwise, your exam, EKG, lab results, CT scan did not show signs of an emergent condition at this time. Ensure hydration. Continue your Zofran for nausea as prescribed as needed. Your CT scan did identify incidental findings which you should review with your doctor. Return to the emergency department for worsening symptoms as described in the accompanying instructions. ----- CT OF THE ABDOMEN AND PELVIS WITH CONTRAST CLINICAL HISTORY: Nausea, vomiting and diarrhea. COMPARISON STUDY: Abdominal series November 02, 2016. TECHNIQUE: Following IV administration of 116 mL of Optiray-320, axial images of the abdomen and pelvis were obtained from the lung bases to the proximal femurs. Images were reviewed in the axial, sagittal, and coronal planes. IV contrast was administered without complication. A dose lowering technique was utilized adhering to the principles of ALARA. CT DOSE: 282.15 mGy.cm FINDINGS: A mildly enlarged subcarinal lymph node is unchanged since CT of October 27, 2010. Therefore, this is likely benign. The heart is mildly enlarged. The liver, spleen, adrenal glands and pancreas are unremarkable. This study is mildly compromised by motion artifact. A 4 cm water attenuation lesion within the upper pole of the right kidney represents a cyst. An 8 mm right renal calculus is noted. There are no ureteral calculi and there is no hydronephrosis. There is no evidence for a bowel obstruction. Sigmoid diverticulosis is noted without evidence for acute diverticulitis. The appendix is normal. No suspicious skeletal lesions are identified. Extensive coronary artery calcification is noted. No pneumatosis, free air or portal venous gas is present. IMPRESSION: 1. No acute process within the abdomen or pelvis. 2. Extensive sigmoid diverticulosis without evidence for acute diverticulitis. 3. 8 mm right renal calculus. No ureteral calculi. No hydronephrosis. 4. Mild cardiomegaly and extensive coronary artery calcification.
[2016-11-03 22:11] LABS: BASO % 0.7 %; BASO ABS # 0.04 K/uL (0-0.2); COMPLETE YES; EOS % 1.9 %; HEMATOCRIT 36.3 % (37-47); IG% 0.3 %; LYMPH % 31.2 %; LYMPH ABS # 1.81 K/uL (1.2-3.4); MEAN CELL VOLUME 87.7 fL (80-100); MEAN CORPUSCULAR HEMOGLOBIN 28.7 pg (25-34); MEAN CORPUSCULAR HGB CONC 32.8 g/dl (32-36); MEAN PLATELET VOLUME 9.5 fL (7.4-10.4); MONO % 10.3 %; NEUT % 55.6 %; PLATELET COUNT 186 K/uL (130-400); RED BLOOD COUNT 4.14 M/uL (4.2-5.4); WHITE BLOOD COUNT 5.81 K/uL (4.8-10.8)
[2016-11-03 22:30] LABS: BUN/CREATININE RATIO 22.5 (10-20); CALCIUM 9.2 mg/dl (8.5-10.1); CREATININE 0.84 mg/dl (0.60-1.20); POTASSIUM 3.5 mmol/L (3.5-5.1)
[2016-11-03 22:43] LABS: URINE APPEARANCE CLEAR (CLEAR); URINE BILIRUBIN NEG (NEG); URINE COLOR YELLOW; URINE NITRITE NEG (NEG); URINE PH 6.5 (4.5-7.5); URINE SPECIFIC GRAVITY 1.007 (1.000-1.030); UROBILINOGEN NEG (NEG); ZZUR CULT IF INDIC CLEAN CATCH NO
[2016-11-03 22:46] LABS: MANUAL MICROSCOPIC REQUIRED? NO; REVIEW REQ? YES
--- NOTE | 2016-11-03 22:57 | DIAGNOSTIC IMAGING REPORT ---
CHEST ONE VIEW PORTABLE CLINICAL HISTORY: Chest pain. COMPARISON STUDY: Chest radiograph November 02, 2016. FINDINGS: Lung volumes are normal. No pneumothorax or pleural effusion is present. There is no evidence of pulmonary edema. Mild lower lung opacities favor atelectasis. There is no evidence of pulmonary edema. IMPRESSION: No acute cardiopulmonary findings. Electronically signed by: Fede Gilliland M.D. 11/03/2016 10:55 PM Dictated Date/Time: 11/03/2016 10:54 PM
[2016-11-03 22:58] LABS: URINE EPITHELIAL CELL AUTO 0-5 /lpf (0-5)
[2016-11-03 23:24] VITALS: BP 143/63; PULSE 66; O2SAT 95
--- NOTE | 2016-11-03 23:26 | DIAGNOSTIC IMAGING REPORT ---
CT OF THE ABDOMEN AND PELVIS WITH CONTRAST CLINICAL HISTORY: Nausea, vomiting and diarrhea. COMPARISON STUDY: Abdominal series November 02, 2016. TECHNIQUE: Following IV administration of 116 mL of Optiray-320, axial images of the abdomen and pelvis were obtained from the lung bases to the proximal femurs. Images were reviewed in the axial, sagittal, and coronal planes. IV contrast was administered without complication. A dose lowering technique was utilized adhering to the principles of ALARA. CT DOSE: 282.15 mGy.cm FINDINGS: A mildly enlarged subcarinal lymph node is unchanged since CT of October 27, 2010. Therefore, this is likely benign. The heart is mildly enlarged. The liver, spleen, adrenal glands and pancreas are unremarkable. This study is mildly compromised by motion artifact. A 4 cm water attenuation lesion within the upper pole of the right kidney represents a cyst. An 8 mm right renal calculus is noted. There are no ureteral calculi and there is no hydronephrosis. There is no evidence for a bowel obstruction. Sigmoid diverticulosis is noted without evidence for acute diverticulitis. The appendix is normal. No suspicious skeletal lesions are identified. Extensive coronary artery calcification is noted. No pneumatosis, free air or portal venous gas is present. IMPRESSION: 1. No acute process within the abdomen or pelvis. 2. Extensive sigmoid diverticulosis without evidence for acute diverticulitis. 3. 8 mm right renal calculus. No ureteral calculi. No hydronephrosis. 4. Mild cardiomegaly and extensive coronary artery calcification. Electronically signed by: Fede Gilliland M.D. 11/03/2016 11:25 PM Dictated Date/Time: 11/03/2016 11:17 PM
== END 2016-11-03 23:52 | disposition home or self-care (01) ==
LOC: C.EDB 20:32 → C.EDC 23:52
DX: K52.9 Noninfective gastroenteritis and colitis, unspecified (principal); I44.0 Atrioventricular block, first degree; I10 Essential (primary) hypertension; K57.30 Diverticulosis of large intestine without perforation or abscess without bleeding; F03.90 Unspecified dementia, unspecified severity, without behavioral disturbance, psychotic disturbance, mood disturbance, and anxiety; Z79.899 Other long term (current) drug therapy

== ENCOUNTER 2017-04-13 19:26 | Inpatient (IN) | payer OTHER ==
[~2017-04-13] VITALS: Ht 157.5 cm; Wt 57.5 kg
[~2017-04-13 19:26] MED LIST changes: -LPT/20 PO; +LPT20 PO; +RANI150T85 PO; -ZNTT/150 PO
[2017-04-13] MEDS ORDERED: SODIUM CHLORIDE 0.9% 1000ML 250 ML IV STA (20:13)
[2017-04-13] MEDS ORDERED: SODIUM CHLORIDE 0.9% 1000ML 1,000 ML IV STA (20:13)
--- NOTE | 2017-04-13 20:15 | EMERGENCY ROOM VISIT NOTE ---
History Report prepared by Mirella: Jonathon Bain Under the Supervision of: Dr. Damien Miramontes M.D. First contact with patient: 19:49 Chief Complaint: FLU LIKE SX Stated Complaint: FLU History of Present Illness The patient is a 86 year old female who presents to the Emergency Room with complaints of moderate flu-like symptoms that began a couple of days ago. This history is also provided by the patient's son. She has a past medical history of dementia and hypotension. The patient lives with her son who was recently tested and diagnosed with influenza A. A couple days ago, the patient began to experience a multitude of symptoms including headache, nausea, body aches, cough , diarrhea, and generalized weakness. She has had a lessened appetite and has been having a difficult time keeping up with fluids and foods. She denies any fevers, sore throat, or abnormal urinary symptoms. She takes an Aspirin daily. Her son notes that she has a heart murmur for which is followed up with cardiology. Source of History: patient, family Onset: a couple of days ago Position: other (Global) Symptom Intensity: moderate Quality: other (Flu-like symptoms) Timing: constant Associated Symptoms: + headache, + cough, + nausea, + diarrhea, + weakness, No fevers, No sorethroat, No urinary symptoms Review of Systems See HPI for pertinent positives & negatives. A total of 10 systems reviewed and were otherwise negative. Past Medical & Surgical Medical Problems: (1) Dementia (2) Diverticulosis Colon (W/O Ment Of Hemorrhage) (3) Esophageal Reflux (4) Hypertension Nos (5) Sciatica Surgical Problems: (1) Hypertension Nos Old medical records were reviewed. Nurse's notes were reviewed and I agree with. Family History Omitted secondary to the patient's age. Social History Smoking Status: Never Smoker Smokeless Tobacco Use: No Drug Use: none Marital Status: Housing Status: lives with family Occupation Status: retired Current/Historical Medications Scheduled Aspirin (Aspirin Ec), 81 MG PO DAILY Atorvastatin (Lipitor), 20 MG PO QDD Calcium Carbonate (Caltrate 600), 1,500 MG PO DAILY Cholecalciferol (D3 2000), 2,000 UNITS PO DAILY Donepezil Hydrochloride (Donepezil Hcl), 23 MG PO DAILY Lisinopril (Lisinopril), 10 MG PO DAILY Montelukast Sod (Montelukast Sodium), 10 MG PO DAILY Multiple Vitamins W/ Minerals (Centrum Silver), 1 TAB PO DAILY Ranitidine (Zantac), 150 MG PO QAM Scheduled PRN Ondasetron Odt (Zofran Odt), 4 MG SL Q6H PRN for Nausea or Vomiting Allergies Coded Allergies: Estrogens (Verified Allergy, Unknown, `, 04/13/17) Nitrofurantoin (Verified Allergy, Unknown, Unknown, 04/13/17) Penicillins (Verified Allergy, Unknown, `, 04/13/17) Physical Exam Vital Signs Date Time Temp Pulse Resp B/P (MAP) Pulse Ox O2 Delivery O2 Flow Rate FiO2 04/13/17 23:47 75 20 122/55 98 Room Air 04/13/17 22:49 88 Room Air 04/13/17 22:29 83 18 116/69 93 Room Air 04/13/17 20:47 87 18 119/59 91 Room Air 04/13/17 20:23 84 04/13/17 19:33 37.5 114 20 104/61 94 Room Air Physical Exam General: Non-ill appearing older female in no acute distress. HEENT: Normal cephalic atraumatic. Pupils are equal round and reactive to light. Extraocular movements are intact. Oropharynx is pink with moist mucous membranes. No swelling of the mouth lips or tongue. Neck: Supple with a midline trachea. No meningeal signs or stiffness, no JVD or bruits. No Stridor. Chest: Clear to auscultation bilaterally. No wheezes or rhonchi. No increased work of breathing. Heart: regular rate and rhythm. 2/6 rumbling murmur. Abdomen: Soft nontender, nondistended without rebound guarding or rigidity. Extremities: No cyanosis clubbing or edema. No calf tenderness or assymetry Spine/Back. Non tender to palpation. No CVA tenderness Skin: Good turgor without rashes. Neurologic exam: Alert to person and place, but not date. Cranial nerves two through 12 are intact. Motor and sensation are intact and symmetrical throughout. Medical Decision & Procedures ER Provider Diagnostic Interpretation: Radiology results as stated below per my review and radiologist interpretation: SINGLE VIEW CHEST CLINICAL HISTORY: Atypical chest pain. FINDINGS: An AP, portable, upright chest radiograph is compared to study dated 11/03/2016. The examination is degraded by portable technique and patient rotation. The heart is mildly enlarged and there is atherosclerotic calcification of the thoracic aorta. The pulmonary vasculature is noncongested. Chronic interstitial thickening is similar to previous. The lungs and pleural spaces are clear. No pneumothorax is seen. The skeletal structures are osteopenic. Degenerative change is seen throughout the thoracic spine. IMPRESSION: Mild cardiac enlargement with no acute cardiopulmonary abnormality. Electronically signed by: Cristiano Wynn M.D. 04/13/2017 8:40 PM Dictated Date/Time: 04/13/2017 8:39 PM Laboratory Results 04/13/17 20:20 Red Blood Count 4.59, Mean Corpuscular Volume 85.6, Mean Corpuscular Hemoglobin 28.3, Mean Corpuscular Hemoglobin Concent 33.1, Mean Platelet Volume 9.8, Neutrophils (%) (Auto) 74.0, Lymphocytes (%) (Auto) 14.1, Monocytes (%) (Auto) 11.3, Eosinophils (%) (Auto) 0.2, Basophils (%) (Auto) 0.2, Neutrophils # (Auto ) 3.73, Lymphocytes # (Auto) 0.71, Monocytes # (Auto) 0.57, Eosinophils # (Auto ) 0.01, Basophils # (Auto) 0.01 04/13/17 20:20 Test 04/13/17 19:37 04/13/17 20:20 04/13/17 20:45 04/13/17 21:20 Influenza Type A Antigen Neg for Influ A (NEG) Influenza Type B Antigen Neg for Influ B (NEG) White Blood Count 5.04 K/uL (4.8-10.8) Red Blood Count 4.59 M/uL (4.2-5.4) Hemoglobin 13.0 g/dL (12.0-16.0) Hematocrit 39.3 % (37-47) Mean Corpuscular Volume 85.6 fL (80-100) Mean Corpuscular Hemoglobin 28.3 pg (25-34) Mean Corpuscular Hemoglobin Concent 33.1 g/dl (32-36) Platelet Count 141 K/uL (130-400) Mean Platelet Volume 9.8 fL (7.4-10.4) Neutrophils (%) (Auto) 74.0 % Lymphocytes (%) (Auto) 14.1 % Monocytes (%) (Auto) 11.3 % Eosinophils (%) (Auto) 0.2 % Basophils (%) (Auto) 0.2 % Neutrophils # (Auto) 3.73 K/uL (1.4-6.5) Lymphocytes # (Auto) 0.71 K/uL (1.2-3.4) Monocytes # (Auto) 0.57 K/uL (0.11-0.59) Eosinophils # (Auto) 0.01 K/uL (0-0.5) Basophils # (Auto) 0.01 K/uL (0-0.2) RDW Standard Deviation 45.9 fL (36.4-46.3) RDW Coefficient of Variation 14.6 % (11.5-14.5) Immature Granulocyte % (Auto) 0.2 % Immature Granulocyte # (Auto) 0.01 K/uL (0.00-0.02) Prothrombin Time 10.9 SECONDS (9.0-12.0) Prothromb Time International Ratio 1.0 (0.9-1.1) Activated Partial Thromboplast Time 25.9 SECONDS (21.0-31.0) Partial Thromboplastin Ratio 1.0 Anion Gap 9.0 mmol/L (3-11) Est Creatinine Clear Calc Drug Dose 31.4 ml/min Estimated GFR () 59.7 Estimated GFR (Non- 51.5 BUN/Creatinine Ratio 12.9 (10-20) Calcium Level 9.1 mg/dl (8.5-10.1) Total Bilirubin 0.6 mg/dl (0.2-1) Direct Bilirubin 0.2 mg/dl (0-0.2) Aspartate Amino Transf (AST/SGOT) 18 U/L (15-37) Alanine Aminotransferase (ALT/SGPT) 23 U/L (12-78) Alkaline Phosphatase 83 U/L (45-117) Troponin I 0.086 ng/ml (0-0.045) Total Protein 7.5 gm/dl (6.4-8.2) Albumin 3.7 gm/dl (3.4-5.0) Lipase 92 U/L (73-393) Urine Color DK YELLOW Urine Appearance CLEAR (CLEAR) Urine pH 5.0 (4.5-7.5) Urine Specific [place] 1.021 (1.000-1.030) Urine Protein TRACE (NEG) Urine Glucose (UA) NEG (NEG) Urine Ketones 2+ (NEG) Urine Occult Blood NEG (NEG) Urine Nitrite NEG (NEG) Urine Bilirubin NEG (NEG) Urine Urobilinogen NEG (NEG) Urine Leukocyte Esterase NEG (NEG) Urine WBC (Auto) 1-5 /hpf (0-5) Urine RBC (Auto) 0-4 /hpf (0-4) Urine Hyaline Casts (Auto) 1-5 /lpf (0-5) Urine Epithelial Cells (Auto) 20-30 /lpf (0-5) Urine Bacteria (Auto) NEG (NEG) Bedside Lactic Acid Venous 0.75 mmol/L (0.90-1.70) Laboratory studies as stated above per my review. Medications Administered Medications (Trade) Dose Ordered Sig/Johanne Route Start Time Stop Time Status Last Admin Dose Admin Sodium Chloride 250 ml @ 999 mls/hr Q16M STAT IV 04/13/17 20:13 04/13/17 20:28 DC 04/13/17 20:48 999 MLS/HR Sodium Chloride 1,000 ml @ 100 mls/hr Q10H STAT IV 04/13/17 20:13 04/14/17 06:12 04/13/17 20:48 100 MLS/HR ECG Per My Interpretation Indication: weakness Rate (beats per minute): 82 Rhythm: normal sinus Findings: nonspecific-ST abn, other (Normal intervals) Comparison ECG Date: Nov 03, 2016 Change: no significant change ED Course 1948: Past medical records reviewed. The patient was evaluated in room B10, and a complete history and physical examination were performed. 2012: Ordered Sodium Chloride 1000 ml @ 100 mls/hr IV, Sodium Chloride 250 ml @ 999 mls/hr IV 2205: The patient appears to be comfortable, but her troponin is elevated. 2214: Upon reevaluation, the patient is resting. I discussed the results and treatment plan with the patient. She verbalized agreement of the treatment plan. The patient will be evaluated by Dr. Bhakti Rebollar [facility] [place] [facility] [place] for further management. Medical Decision Differentials include, but are not limited to; influenza, sepsis, dehydration, pneumonia, UTI, cardiac disease, and electrolyte or metabolic abnormality. This patient comes in as described above. she has felt weak and had a cough and some non-descriptive possible flulike symptoms. her son is also being treated for the flu and had influenza A. She denies any chest pain. She does have some mild dementia. IV access established. multiple blood tests was obtained. her influenza swab on the rapid flu was negative. Chest x-ray does not show any evidence to suggest acute congestive heart failure, pneumonia, or pneumothorax. EKG was unremarkable and shows no ischemic changes. She has no acute electrolyte or metabolic abnormalities. Her troponin is mildly elevated at 0.08. Given her age and the mildly elevated troponin, I do think she needs to be observed/admitted for further treatment and evaluation of consult Dr. Gonzalez from the medical team to see her in the ER. She may ultimately have the flu as well and will be given Tamiflu. Medication Reconcilliation Current Medication List: was personally reviewed by me Blood Pressure Screening Patient's blood pressure: Normal blood pressure Blood pressure disposition: Did not require urgent referral Consults Time Called: [phone] Consulting Physician: Dr. Ya - [facility] [place] Returned Call: [phone] Discussed the patient's case. The patient will be evaluated for further management. Impression Primary Impression: Elevated troponin Additional Impressions: Weakness Influenza-like illness Cough Scribe Attestation The scribe's documentation has been prepared under my direction and personally reviewed by me in its entirety. I confirm that the note above accurately reflects all work, treatment, procedures, and medical decision making performed by me. Departure Information Dispostion Being Evaluated By Hospitalist Referrals Nia Rich PA-C (PCP) Patient Instructions My [facility] Problem Qualifiers
--- NOTE | 2017-04-13 20:42 | DIAGNOSTIC IMAGING REPORT ---
SINGLE VIEW CHEST CLINICAL HISTORY: Atypical chest pain. FINDINGS: An AP, portable, upright chest radiograph is compared to study dated 11/03/2016. The examination is degraded by portable technique and patient rotation. The heart is mildly enlarged and there is atherosclerotic calcification of the thoracic aorta. The pulmonary vasculature is noncongested. Chronic interstitial thickening is similar to previous. The lungs and pleural spaces are clear. No pneumothorax is seen. The skeletal structures are osteopenic. Degenerative change is seen throughout the thoracic spine. IMPRESSION: Mild cardiac enlargement with no acute cardiopulmonary abnormality. Electronically signed by: Cristiano Wynn M.D. 04/13/2017 8:40 PM Dictated Date/Time: 04/13/2017 8:39 PM
[2017-04-13 20:44] LABS: INFLUENZA B ANTIGEN Neg for Influ B (NEG)
[2017-04-13 20:53] LABS: BASO % 0.2 %; BASO ABS # 0.01 K/uL (0-0.2); EOS % 0.2 %; EOS ABS # 0.01 K/uL (0-0.5); HEMATOCRIT 39.3 % (37-47); IG# 0.01 K/uL (0.00-0.02); LYMPH % 14.1 %; LYMPH ABS # 0.71 K/uL (1.2-3.4); MEAN CELL VOLUME 85.6 fL (80-100); MEAN CORPUSCULAR HEMOGLOBIN 28.3 pg (25-34); MEAN CORPUSCULAR HGB CONC 33.1 g/dl (32-36); MEAN PLATELET VOLUME 9.8 fL (7.4-10.4); MONO % 11.3 %; MONO ABS # 0.57 K/uL (0.11-0.59); NEUT ABS # 3.73 K/uL (1.4-6.5); PLATELET COUNT 141 K/uL (130-400); RED CELL DISTRIBUTION WIDTH CV 14.6 % (11.5-14.5); RED CELL DISTRIBUTION WIDTH SD 45.9 fL (36.4-46.3); WHITE BLOOD COUNT 5.04 K/uL (4.8-10.8)
[2017-04-13 21:06] LABS: PTT PATIENT 25.9 SECONDS (21.0-31.0)
[2017-04-13] MEDS ORDERED: CHOL1TAB79 PO (21:06)
[2017-04-13] MEDS ORDERED: ONDA4TAB10 SL (21:06)
[2017-04-13] MEDS ORDERED: ASPI81TA28 PO (21:06)
[2017-04-13] MEDS ORDERED: DONE-87 PO (21:06)
[2017-04-13 21:13] LABS: ALBUMIN 3.7 gm/dl (3.4-5.0); CALCIUM 9.1 mg/dl (8.5-10.1); CREATININE 0.98 mg/dl (0.60-1.20); POTASSIUM 3.6 mmol/L (3.5-5.1)
[2017-04-13 21:16] LABS: TOTAL PROTEIN 7.5 gm/dl (6.4-8.2)
--- NOTE | 2017-04-13 23:27 | History and Physical ---
History & Physical Date & Time of Service: Apr 13, 2017 at 23:27 Chief Complaint: FLU Primary Care Physician: Nia Rich PA-C History of Present Illness Source: patient, family, hospital records The patient is an 86-year-old female who presents to the emergency department with her son whom she lives with, with complaint of moderate flulike symptoms that began a few days prior to arrival. Her son has been diagnosed with influenza A, and he was concerned that she may have to same diagnosis. She did not receive empiric treatment when he was diagnosed. Her son reports that she has been eating and drinking less over the past several days. She has continued to take her medications as directed. Contribution to the HPI is significantly limited by severe fatigue, and she fell asleep. Past Medical/Surgical History Medical Problems: (1) Dementia Status: Chronic (2) Diverticulosis Colon (W/O Ment Of Hemorrhage) Status: Resolved (3) Esophageal Reflux Status: Chronic (4) Hypertension Nos Status: Chronic (5) Sciatica Status: Chronic Family History Noncontributory Social History Smoking Status: Never Smoker Smokeless Tobacco Use: No Drug Use: none Marital Status: Housing status: lives alone Occupational Status: retired Immunizations History of Influenza Vaccine: N/A Influenza Vaccine Date: Nov 15, 2008 History of Tetanus Vaccine?: Yes Tetanus Immunization Date: Aug 27, 2010 History of Pneumococcal: Yes History of Hepatitis B Vaccine: No Multi-Drug Resistant Organisms History of MDRO: No Allergies Coded Allergies: Estrogens (Verified Allergy, Unknown, `, 04/13/17) Nitrofurantoin (Verified Allergy, Unknown, Unknown, 04/13/17) Penicillins (Verified Allergy, Unknown, `, 04/13/17) Home Medications Scheduled Aspirin (Aspirin Ec), 81 MG PO DAILY Atorvastatin (Lipitor), 20 MG PO QDD Calcium Carbonate (Caltrate 600), 1,500 MG PO DAILY Cholecalciferol (D3 2000), 2,000 UNITS PO DAILY Donepezil Hydrochloride (Donepezil Hcl), 23 MG PO DAILY Lisinopril (Lisinopril), 10 MG PO DAILY Montelukast Sod (Montelukast Sodium), 10 MG PO DAILY Multiple Vitamins W/ Minerals (Centrum Silver), 1 TAB PO DAILY Ranitidine (Zantac), 150 MG PO QAM Scheduled PRN Ondasetron Odt (Zofran Odt), 4 MG SL Q6H PRN for Nausea or Vomiting Review of Systems The patient is not able to contribute to her review of systems due to severe fatigue. Her son does report generalized flu type symptoms of headache, nausea , body aches, cough, diarrhea and generalized weakness. She has had a decreased appetite and has been having difficulty with optimized fluid and solid intake. Physical Exam Vital Signs Date Time Temp Pulse Resp B/P (MAP) Pulse Ox O2 Delivery O2 Flow Rate FiO2 04/13/17 22:49 88 Room Air 04/13/17 22:29 83 18 116/69 93 Room Air 04/13/17 20:47 87 18 119/59 91 Room Air 04/13/17 20:23 84 04/13/17 19:33 37.5 114 20 104/61 94 Room Air The patient has fallen asleep, well developed and well nourished, normocephalic and atraumatic, lying in bed and in no acute distress. HEENT--PERRL, EOMI, mucous membranes and oropharynx dry. Neck--supple. No JVD. No bruits. Thyroid normal, trachea midline, no adenopathy. Heart--normal S1 and S2. No murmurs, rubs or gallops. Lungs--clear bilaterally, no respiratory distress, no accessory muscle use. Abdomen--normal bowel sounds and soft. Nontender. Nondistended, no hernias or masses, no organomegaly. Extremities--no cyanosis or clubbing. No edema. There are good distal pulses b/ l. Dermatologic--normal skin turgor, normal color, no abnormal lymph nodes, no rash. Neurologic--cranial nerves II through XII grossly intact. Rheumatologic--deferred Psychiatric--normal affect prior to falling asleep. Diagnostics Laboratory Results Results Past 24 Hours Test 04/13/17 19:37 04/13/17 20:20 04/13/17 20:45 04/13/17 21:20 Range/Units Influenza Type A Antigen Neg for Influ A NEG Influenza Type B Antigen Neg for Influ B NEG White Blood Count 5.04 4.8-10.8 K/uL Red Blood Count 4.59 4.2-5.4 M/uL Hemoglobin 13.0 12.0-16.0 g/dL Hematocrit 39.3 37-47 % Mean Corpuscular Volume 85.6 80-100 fL Mean Corpuscular Hemoglobin 28.3 25-34 pg Mean Corpuscular Hemoglobin Concent 33.1 32-36 g/dl Platelet Count 141 130-400 K/uL Mean Platelet Volume 9.8 7.4-10.4 fL Neutrophils (%) (Auto) 74.0 % Lymphocytes (%) (Auto) 14.1 % Monocytes (%) (Auto) 11.3 % Eosinophils (%) (Auto) 0.2 % Basophils (%) (Auto) 0.2 % Neutrophils # (Auto) 3.73 1.4-6.5 K/uL Lymphocytes # (Auto) 0.71 1.2-3.4 K/uL Monocytes # (Auto) 0.57 0.11-0.59 K/uL Eosinophils # (Auto) 0.01 0-0.5 K/uL Basophils # (Auto) 0.01 0-0.2 K/uL RDW Standard Deviation 45.9 36.4-46.3 fL RDW Coefficient of Variation 14.6 11.5-14.5 % Immature Granulocyte % (Auto) 0.2 % Immature Granulocyte # (Auto) 0.01 0.00-0.02 K/uL Prothrombin Time 10.9 9.0-12.0 SECONDS Prothromb Time International Ratio 1.0 0.9-1.1 Activated Partial Thromboplast Time 25.9 21.0-31.0 SECONDS Partial Thromboplastin Ratio 1.0 Sodium Level 138 136-145 mmol/L Potassium Level 3.6 3.5-5.1 mmol/L Chloride Level 101 98-107 mmol/L Carbon Dioxide Level 28 21-32 mmol/L Anion Gap 9.0 3-11 mmol/L Blood Urea Nitrogen 13 7-18 mg/dl Creatinine 0.98 0.60-1.20 mg/dl Est Creatinine Clear Calc Drug Dose 31.4 ml/min Estimated GFR () 59.7 Estimated GFR (Non- 51.5 BUN/Creatinine Ratio 12.9 10-20 Random Glucose 108 70-99 mg/dl Calcium Level 9.1 8.5-10.1 mg/dl Total Bilirubin 0.6 0.2-1 mg/dl Direct Bilirubin 0.2 0-0.2 mg/dl Aspartate Amino Transf (AST/SGOT) 18 15-37 U/L Alanine Aminotransferase (ALT/SGPT) 23 12-78 U/L Alkaline Phosphatase 83 45-117 U/L Troponin I 0.086 0-0.045 ng/ml Total Protein 7.5 6.4-8.2 gm/dl Albumin 3.7 3.4-5.0 gm/dl Lipase 92 73-393 U/L Urine Color DK YELLOW Urine Appearance CLEAR CLEAR Urine pH 5.0 4.5-7.5 Urine Specific [place] 1.021 1.000-1.030 Urine Protein TRACE NEG Urine Glucose (UA) NEG NEG Urine Ketones 2+ NEG Urine Occult Blood NEG NEG Urine Nitrite NEG NEG Urine Bilirubin NEG NEG Urine Urobilinogen NEG NEG Urine Leukocyte Esterase NEG NEG Urine WBC (Auto) 1-5 0-5 /hpf Urine RBC (Auto) 0-4 0-4 /hpf Urine Hyaline Casts (Auto) 1-5 0-5 /lpf Urine Epithelial Cells (Auto) 20-30 0-5 /lpf Urine Bacteria (Auto) NEG NEG Bedside Lactic Acid Venous 0.75 0.90-1.70 mmol/L Microbiology Results 04/13/17 Blood Culture, Received Pending 04/13/17 Blood Culture, Received Pending 04/13/17 Urine Culture, Received Pending Diagnostic Radiology Patient Name: BHARATHI GUEVARA Unit Number: [id number] Dictated: 04/13/172038 Transcribed: 04/13/172038 EV Printed Date/Time: [~ rep prt dt]/[~ rep prt tm] [~ rep ct labl] - [~ rep ct ivnm] [facility] [place] [address] Dictated: 04/13/172038 Transcribed: 04/13/172038 EV Printed Date/Time: [~ rep prt dt]/[~ rep prt tm] [~ rep ct labl] - [~ rep ct ivnm] SINGLE VIEW CHEST CLINICAL HISTORY: Atypical chest pain. FINDINGS: An AP, portable, upright chest radiograph is compared to study dated 11/03/2016. The examination is degraded by portable technique and patient rotation. The heart is mildly enlarged and there is atherosclerotic calcification of the thoracic aorta. The pulmonary vasculature is noncongested. Chronic interstitial thickening is similar to previous. The lungs and pleural spaces are clear. No pneumothorax is seen. The skeletal structures are osteopenic. Degenerative change is seen throughout the thoracic spine. IMPRESSION: Mild cardiac enlargement with no acute cardiopulmonary abnormality. Electronically signed by: Cristiano Wynn M.D. 04/13/2017 8:40 PM Dictated Date/Time: 04/13/2017 8:39 PM The status of this report is Signed. Draft = Not yet reviewed or approved by Radiologist. Signed = Reviewed and approved by Radiologist. <AttendingPhy></AttendingPhy> <FamilyPhy>Nia Rcih PA-C</FamilyPhy> < PrimaryPhy>Nia Rich PA-C</PrimaryPhy> <UnitNumber>[id number]</ UnitNumber> <VisitNumber>[id number]</VisitNumber> <PatientName>BHARATHI GUEVARA</PatientName> <DateOfBirth>1930</DateOfBirth> <Location>[facility]</Location > <ServiceDate>04/13/17</ServiceDate> <MNE>ESINDI</MNE> <OrderingPhy>Damien Miramontes M.D.</OrderingPhy> <OrderingPhyMNE>f rep ord dr daniel</OrderingPhyMNE> < DictatingPhyMNE>f rep dict dr daniel</DictatingPhyMNE> <CCListMNE>f rep ct maría</ CCListMNE> <AdmittingPhyMNE>f pt admit dr daniel</AdmittingPhyMNE> <AttendingPhyMNE >f pt attend dr daniel</AttendingPhyMNE> <ConsultingPhyMNE>f pt consult dr daniel</ConsultingPhyMNE> <FamilyPhyMNE>f pt fam dr daniel</FamilyPhyMNE> <OtherPhyMNE>f pt other dr daniel</OtherPhyMNE> < PrimaryPhyMNE>f pt prim care dr daniel</PrimaryPhyMNE> <ReferringPhyMNE>f pt referring dr daniel</ReferringPhyMNE> EKG EKG shows normal sinus rhythm 82 bpm, with [address] depressions in leads V4 to V6. Impression Assessment and Plan Flu type illness with household contact positive for influenza A-- Influenza swab is negative, however, because of the above should be treated empirically with Tamiflu renal dose. Symptomatic treatment with Zofran and Protonix. Elevated troponin with nonspecific ST-T changes-- The patient will be admitted to telemetry for serial cardiac enzymes, serial EKG's, cardiac rhythm monitoring and a 2-D echocardiogram with Dopplers. Continue aspirin 81 mg daily. Hold lisinopril 10 mg daily. If any change in EKG, heart rhythm or laboratories, will begin low-dose heparin infusion at that time. Hyperlipidemia-- Continue atorvastatin 20 mg daily. Check a fasting lipid panel GERD-- Continue ranitidine SDAT-- Omeprazole 20 mg nonformulary, we will place on 10 mg daily. Level of Care Telemetry Resuscitation Status FULL RESUSCITATION VTE Prophylaxis VTE Risk Assessment Done? Y/N: Yes Risk Level: High Given or contraindicated: Unfractionated heparin SQ, SCD's
[2017-04-13] MEDS ORDERED: POLYETHYLENE (MIRALAX) 17 GM PACK PO PRN (23:30)
[2017-04-13] MEDS ORDERED: MAGNESIUM HYDROXIDE SUSP 30 ML UDC PO PRN (23:30)
[2017-04-13] MEDS ORDERED: ALUMINUM/MAGNESIUM/SIMETH (MAALOX MAX) 30 ML UDC PO PRN (23:30)
[2017-04-13] MEDS ORDERED: NITROGLYCERIN 0.4 MG SL PER TAB CHARGE SL PRN (23:30)
[2017-04-13] MEDS ORDERED: ONDANSETRON 8MG OD TAB PO PRN (23:45)
[2017-04-13] MEDS ORDERED: OSELTAMIVIR PHOSPHATE 75 MG CAP PO STA (23:55)
[2017-04-14] VITALS (8 sets, daily range): BP systolic 117–134; BP diastolic 60–70; PULSE 70–76; TEMP 36.5–38.1; O2SAT 96–100; Ht 157.5 cm; Wt 57.5 kg
[2017-04-14] MEDS: NSS + 20MEQ KCL 1000ML 1,000 ML IV SCH ×2 (01:17→20:59)
[2017-04-14] MEDS: OSELTAMIVIR PHOSPHATE SUSP 30 MG/5 ML UDP PO SCH ×3 (01:17→21:12)
[2017-04-14 06:16] LABS: BASO % 0.7 %; BASO ABS # 0.02 K/uL (0-0.2); EOS % 0.7 %; EOS ABS # 0.02 K/uL (0-0.5); HEMATOCRIT 38.1 % (37-47); HEMOGLOBIN 12.5 g/dL (12.0-16.0); IG# 0.02 K/uL (0.00-0.02); LYMPH ABS # 0.91 K/uL (1.2-3.4); MEAN CORPUSCULAR HEMOGLOBIN 28.2 pg (25-34); MEAN CORPUSCULAR HGB CONC 32.8 g/dl (32-36); MEAN PLATELET VOLUME 9.5 fL (7.4-10.4); MONO % 15.8 %; MONO ABS # 0.48 K/uL (0.11-0.59); NEUT % 52.1 %; NEUT ABS # 1.58 K/uL (1.4-6.5); PLATELET COUNT 137 K/uL (130-400); RED CELL DISTRIBUTION WIDTH CV 14.6 % (11.5-14.5); RED CELL DISTRIBUTION WIDTH SD 46.5 fL (36.4-46.3); WHITE BLOOD COUNT 3.03 K/uL (4.8-10.8)
[2017-04-14 06:25] LABS: PTT PATIENT 25.2 SECONDS (21.0-31.0)
[2017-04-14 06:47] LABS: CREATININE 0.83 mg/dl (0.60-1.20)
[2017-04-14 06:48] LABS: CALCIUM 8.7 mg/dl (8.5-10.1); POTASSIUM 3.9 mmol/L (3.5-5.1)
[2017-04-14 06:53] LABS: CKMB 0.9 ng/ml (0.5-3.6); HEMOGLOBIN A1C 6.1 % (4.5-5.6)
[2017-04-14] MEDS: ACETAMINOPHEN 325 MG TAB PO PRN (10:07)
[2017-04-14] MEDS: ASPIRIN 81 MG ECTAB PO SCH (10:08)
[2017-04-14] MEDS: DONEPEZIL HCL 10 MG TAB PO SCH (10:08)
[2017-04-14] MEDS: CEROVITE ADV FORMULA TAB PO SCH (10:08)
[2017-04-14] MEDS: CHOLECALCIFEROL 1000 INTER.UNIT TAB PO SCH (10:08)
[2017-04-14] MEDS: CALCIUM 600MG + VIT D 400 IU TAB PO SCH ×2 (10:09→21:13)
[2017-04-14] MEDS: RANITIDINE HCL 150 MG TAB PO SCH (10:09)
[2017-04-14] MEDS: HEPARIN SOD 5000 UNIT/0.5 ML CARP SQ SCH ×2 (10:11→21:15)
--- NOTE | 2017-04-14 11:40 | Hospitalist Progress Note ---
Hospitalist Progress Note Date of Service Apr 14, 2017. (Naima Dale .EMILY) EMILY Physician Supervision Note: I interviewed and examined the patient. Discussed with Naima DIAZ and agree with findings and plan as documented in the note. Any exceptions or clarifications are listed here: None PT is here with influenza and fever, weakness has some baseline dementia vitals show fever lungs are fairly clear minor rhonchi supportive care and hydration plus tamiflu Documented By: Selvin Felix (Selvin Felix M.D.) Subjective Pt evaluation today including: conversation w/ patient, physical exam, chart review, lab review, review of inpatient medication list Voiding: no voiding problems Ms. Loya feels generally unwell but has no specific complaints. She denies chest pain or sob. ROS Constitutional: no chills, aches, sweats or fever Respiratory: no sob,cough, sputum, or wheezing Cardiac: no chest pain, palpitations, edema, orthopnea or lightheadedness GI: no abdominal pain, nausea, vomiting, diarrhea or constipation : no dysuria or hesitancy Extremities: no joint pain or weakness Skin: no rash All other systems reviewed and negative (Naima Dale .EMILY) Medications Medications (Trade) Dose Ordered Sig/Johanne Route Start Time Stop Time Status Last Admin Dose Admin Sodium Chloride 250 ml @ 999 mls/hr Q16M STAT IV 04/13/17 20:13 04/13/17 20:28 DC 04/13/17 20:48 999 MLS/HR Sodium Chloride 1,000 ml @ 100 mls/hr Q10H STAT IV 04/13/17 20:13 04/14/17 00:48 DC 04/13/17 20:48 100 MLS/HR Heparin Sodium (Porcine) (Heparin Sq 5000 Unit/0.5ml) 5,000 unit Q12 SQ 04/14/17 09:00 05/14/17 08:59 04/14/17 10:11 5,000 UNIT Potassium Chloride/Sodium Chloride 1,000 ml @ 50 mls/hr Q20H IV 04/14/17 00:50 05/14/17 00:49 04/14/17 01:17 50 MLS/HR Acetaminophen (Tylenol Tab) 650 mg Q4H PRN PO 2/20/18 23:30 05/13/17 23:29 04/14/17 10:07 650 MG Aspirin (Ecotrin Tab) 81 mg DAILY PO 04/14/17 09:00 05/14/17 08:59 04/14/17 10:08 81 MG Ranitidine HCl (zANTac TAB) 150 mg QAM PO 04/14/17 09:00 05/14/17 08:59 04/14/17 10:09 150 MG Calcium/Vitamin D (Caltrate Plus Tab) 1 tab BID PO 04/14/17 09:00 05/14/17 08:59 04/14/17 10:09 1 TAB Cholecalciferol (Vitamin D Tab) 2,000 inter.unit QAM PO 04/14/17 09:00 05/14/17 08:59 04/14/17 10:08 2,000 INTER.UNIT Donepezil HCl (Aricept Tab) 10 mg QAM PO 04/14/17 09:00 05/14/17 08:59 04/14/17 10:08 10 MG Multivitamins/ Minerals (Multivitamin W/ Minerals Tab) 1 tab QAM PO 04/14/17 09:00 05/14/17 08:59 04/14/17 10:08 1 TAB Oseltamivir Phosphate (Tamiflu Susp) 30 mg BID PO 04/14/17 01:00 04/19/17 00:59 04/14/17 10:09 30 MG (Naima Dale, EMILY) Objective Vital Signs Date Time Temp Pulse Resp B/P (MAP) Pulse Ox O2 Delivery O2 Flow Rate FiO2 04/14/17 08:00 96 Room Air 2.0 04/14/17 07:18 37.9 73 20 127/66 (86) 96 Room Air 04/14/17 04:00 Nasal Cannula 2.0 04/14/17 03:27 37.0 76 19 117/63 (81) 99 Nasal Cannula 2.0 04/14/17 00:00 36.5 74 18 134/70 100 Nasal Cannula 2.0 04/13/17 23:47 75 20 122/55 98 Room Air 04/13/17 22:49 88 Room Air 04/13/17 22:29 83 18 116/69 93 Room Air 04/13/17 20:47 87 18 119/59 91 Room Air 04/13/17 20:23 84 04/13/17 19:33 37.5 114 20 104/61 94 Room Air (Naima Dale CRNP) Physical Exam Notes: General: no distress Eyes: normal inspection, PERLL Respiratory: chest non tender, clear to auscultation, normal breath sounds, no respiratory distress, no accessory muscle use Cardiac: regular rate and rhythm, no rub or gallop, no murmur, no edema, no jvd GI/: active bowel sounds, no abd pain or tenderness, soft, non distended Extremities: normal range of motion, normal strength, non tender Neuro/Psych: alert and oriented x 3, normal mood and affect Skin: normal color, dry (Naima Dale CRNP) Laboratory Results Last 24 Hours Test 04/13/17 19:37 04/13/17 20:20 04/13/17 20:45 04/13/17 21:20 Influenza Type A Antigen Neg for Influ A Influenza Type B Antigen Neg for Influ B White Blood Count 5.04 K/uL Red Blood Count 4.59 M/uL Hemoglobin 13.0 g/dL Hematocrit 39.3 % Mean Corpuscular Volume 85.6 fL Mean Corpuscular Hemoglobin 28.3 pg Mean Corpuscular Hemoglobin Concent 33.1 g/dl Platelet Count 141 K/uL Mean Platelet Volume 9.8 fL Neutrophils (%) (Auto) 74.0 % Lymphocytes (%) (Auto) 14.1 % Monocytes (%) (Auto) 11.3 % Eosinophils (%) (Auto) 0.2 % Basophils (%) (Auto) 0.2 % Neutrophils # (Auto) 3.73 K/uL Lymphocytes # (Auto) 0.71 K/uL Monocytes # (Auto) 0.57 K/uL Eosinophils # (Auto) 0.01 K/uL Basophils # (Auto) 0.01 K/uL RDW Standard Deviation 45.9 fL RDW Coefficient of Variation 14.6 % Immature Granulocyte % (Auto) 0.2 % Immature Granulocyte # (Auto) 0.01 K/uL Prothrombin Time 10.9 SECONDS Prothromb Time International Ratio 1.0 Activated Partial Thromboplast Time 25.9 SECONDS Partial Thromboplastin Ratio 1.0 Sodium Level 138 mmol/L Potassium Level 3.6 mmol/L Chloride Level 101 mmol/L Carbon Dioxide Level 28 mmol/L Anion Gap 9.0 mmol/L Blood Urea Nitrogen 13 mg/dl Creatinine 0.98 mg/dl Est Creatinine Clear Calc Drug Dose 31.4 ml/min Estimated GFR () 59.7 Estimated GFR (Non- 51.5 BUN/Creatinine Ratio 12.9 Random Glucose 108 mg/dl Calcium Level 9.1 mg/dl Total Bilirubin 0.6 mg/dl Direct Bilirubin 0.2 mg/dl Aspartate Amino Transf (AST/SGOT) 18 U/L Alanine Aminotransferase (ALT/SGPT) 23 U/L Alkaline Phosphatase 83 U/L Troponin I 0.086 ng/ml Total Protein 7.5 gm/dl Albumin 3.7 gm/dl Lipase 92 U/L Urine Color DK YELLOW Urine Appearance CLEAR Urine pH 5.0 Urine Specific [place] 1.021 Urine Protein TRACE Urine Glucose (UA) NEG Urine Ketones 2+ Urine Occult Blood NEG Urine Nitrite NEG Urine Bilirubin NEG Urine Urobilinogen NEG Urine Leukocyte Esterase NEG Urine WBC (Auto) 1-5 /hpf Urine RBC (Auto) 0-4 /hpf Urine Hyaline Casts (Auto) 1-5 /lpf Urine Epithelial Cells (Auto) 20-30 /lpf Urine Bacteria (Auto) NEG Bedside Lactic Acid Venous 0.75 mmol/L Test 04/14/17 05:46 White Blood Count 3.03 K/uL Red Blood Count 4.43 M/uL Hemoglobin 12.5 g/dL Hematocrit 38.1 % Mean Corpuscular Volume 86.0 fL Mean Corpuscular Hemoglobin 28.2 pg Mean Corpuscular Hemoglobin Concent 32.8 g/dl Platelet Count 137 K/uL Mean Platelet Volume 9.5 fL Neutrophils (%) (Auto) 52.1 % Lymphocytes (%) (Auto) 30.0 % Monocytes (%) (Auto) 15.8 % Eosinophils (%) (Auto) 0.7 % Basophils (%) (Auto) 0.7 % Neutrophils # (Auto) 1.58 K/uL Lymphocytes # (Auto) 0.91 K/uL Monocytes # (Auto) 0.48 K/uL Eosinophils # (Auto) 0.02 K/uL Basophils # (Auto) 0.02 K/uL RDW Standard Deviation 46.5 fL RDW Coefficient of Variation 14.6 % Immature Granulocyte % (Auto) 0.7 % Immature Granulocyte # (Auto) 0.02 K/uL Prothrombin Time 10.6 SECONDS Prothromb Time International Ratio 1.0 Activated Partial Thromboplast Time 25.2 SECONDS Partial Thromboplastin Ratio 1.0 Sodium Level 137 mmol/L Potassium Level 3.9 mmol/L Chloride Level 102 mmol/L Carbon Dioxide Level 27 mmol/L Anion Gap 8.0 mmol/L Blood Urea Nitrogen 13 mg/dl Creatinine 0.83 mg/dl Est Creatinine Clear Calc Drug Dose 37.1 ml/min Estimated GFR () 73.0 Estimated GFR (Non- 63.0 BUN/Creatinine Ratio 15.4 Random Glucose 83 mg/dl Estimated Average Glucose 128 mg/dl Hemoglobin A1c 6.1 % Calcium Level 8.7 mg/dl Magnesium Level 2.2 mg/dl Total Creatine Kinase 29 U/L Creatine Kinase MB 0.9 ng/ml Creatine Kinase MB Ratio 3.1 Troponin I 0.179 ng/ml Triglycerides Level 95 mg/dl Cholesterol Level 91 mg/dl HDL Cholesterol 44 mg/dl LDL Cholesterol, Calculated 28 mg/dl VLDL Cholesterol, Calculated 19 mg/dl Cholesterol/HDL Ratio 2.1 (Naima Dale CRNP) Assessment and Plan Ms. Loya is an 86 year old woman with viral illness likely influenza Viral illness -Flu type illness with household contact positive for influenza A-- Influenza swab is negative, however, because of the exposure should be treated empirically with Tamiflu renal dose. - Symptomatic treatment with Zofran and Protonix. Elevated troponin with lateral ST changes, htn - continue tele monitoring - patient does appear to have ischemic changes on EKG in latral leads - small increase in trops from 0.079 and 0.1 - consulted and discussed with cardiology - continue to trend trops for now as she is asymptomatic. - Echo pending, serial EKGs - Continue ASA, restart lisinopril Hyperlipidemia-- - Continue atorvastatin 20 mg daily. - lipids wnl GERD-- Continue ranitidine Full code subq heparin (Naima Dale CRNP)
--- NOTE | 2017-04-14 12:02 | ECHOCARDIOGRAM REPORT ---
*NOTICE TO RECEIVING DEMOCRAT AGENCY This information is strictly Confidential and protected under [place] law. [place] law prohibits you from making any further disclosure of this information unless further disclosure is expressly permitted by the written consent of the person to whom it pertains or is authorized by law. A general authorization for the release of medical or other information is not sufficient for this purpose. Hospital accepts no responsibility if the information is made available to any other person, INCLUDING THE PATIENT. Interpretation Summary * Name: BHARATHI GUEVARA Study Date: 04/14/2017 06:33 AM BP: 117/63 mmHg * Patient Location: C.2T\S\E215\S\1 HR: 76 * : 1930 (M/d/yyyy) Gender: Female Height: 62 in * Age: 86 yrs Ethnicity: CA Weight: 124 lb * Ordering Physician: Esa Ya * Referring Physician: Self, Referred * Performed By: Susan Amos RDCS * * Reason For Study: Subendocardial Myocardial Infarction * BSA: 1.6 m2 * -- Conclusions -- * 1. Small left ventricular size with hyperdynamic systolic function. EF > 70%. No regional wall motion abnormalities. No significant left ventricular hypertrophy. Type 1 diastolic dysfunction. * 2. Systolic anterior motion of the mitral chordal structures. Left ventricular intracavitary peak gradient of 20mmHg. * 3. Mild mitral regurgitation. * 4. Normal estimated right ventricular systolic pressure; 25mmHg. * 5. Compared to prior study on 11/14/2008, mild intracavitary gradient is now noted within the left ventricle. Procedure Details * A complete two-dimensional transthoracic echocardiogram was performed (2D, M-mode, Doppler and color flow Doppler). Left Ventricle * Small left ventricular size with hyperdynamic systolic function. EF > 70%. No regional wall motion abnormalities. No significant left ventricular hypertrophy. Type 1 diastolic dysfunction. Right Ventricle * The right ventricle is normal in size and function. * The right ventricular systolic function is normal as assessed by tricuspid annular plane systolic excursion (TAPSE) (normal >1.5 cm). Atria * The left atrial size is normal. * Right atrial size is normal. * There is no evidence of atrial septal defect, but resolution does not allow assessment for a patent foramen ovale. Mitral Valve * There is moderate mitral annular calcification. * There is no mitral valve stenosis. * There is mild mitral regurgitation. * Systolic anterior motion of the mitral chordal structures. Left ventricular intracavitary peak gradient of 20mmHg. Tricuspid Valve * The tricuspid valve is not well visualized, but is grossly normal. * There is no tricuspid stenosis. * There is trace tricuspid regurgitation. Aortic Valve * The aortic valve is trileaflet. * The aortic valve opens well. * No hemodynamically significant valvular aortic stenosis. * No aortic regurgitation is present. Pulmonic Valve * The pulmonary valve is inadequately visualized, but the Doppler data is adequate for interpretation. * There is no pulmonic valvular stenosis. * There is no significant pulmonary regurgitation. Great Vessels * The aortic root is normal size. * Aortic arch of normal dimension. Pericardium/Pleural * There is no pericardial effusion. Great Vessels * Normal inferior vena cava size and collapsability with sniff indicates a normal right atrial pressure of 3 mmHg MMode 2D Measurements and Calculations IVSd 1.1 cm LVIDd 3.1 cm LVIDs 1.3 cm LVPWd 1.1 cm IVS/LVPW 1.0 FS 59.9 % EDV(Teich) 39.2 ml ESV(Teich) 3.8 ml EF(Teich) 90.3 % EDV(cubed) 31.0 ml ESV(cubed) 2.0 ml EF(cubed) 93.6 % LV mass(C)d 107.0 grams LV mass(C)dI 68.6 grams/m\S\2 SV(Teich) 35.4 ml SI(Teich) 22.7 ml/m\S\2 SV(cubed) 29.0 ml SI(cubed) 18.6 ml/m\S\2 Ao root diam 2.7 cm Ao root area 5.9 cm\S\2 ACS 1.5 cm LA dimension 2.7 cm LA/Ao 0.97 LVAd ap4 18.2 cm\S\2 LVLd ap4 7.3 cm EDV(MOD-sp4) 39.5 ml EDV(sp4-el) 38.7 ml LVAs ap4 8.2 cm\S\2 LVLs ap4 5.9 cm ESV(MOD-sp4) 10.6 ml ESV(sp4-el) 9.7 ml EF(MOD-sp4) 73.1 % EF(sp4-el) 75.0 % LVAd ap2 19.4 cm\S\2 LVLd ap2 7.8 cm EDV(MOD-sp2) 42.0 ml EDV(sp2-el) 40.8 ml LVAs ap2 9.3 cm\S\2 LVLs ap2 6.3 cm ESV(MOD-sp2) 13.7 ml ESV(sp2-el) 11.6 ml EF(MOD-sp2) 67.5 % EF(sp2-el) 71.7 % LVLd %diff 6.9 % EDV(MOD-bp) 42.4 ml LVLs %diff 6.2 % ESV(MOD-bp) 12.3 ml EF(MOD-bp) 70.9 % SV(MOD-sp4) 28.9 ml SI(MOD-sp4) 18.5 ml/m\S\2 SV(MOD-sp2) 28.4 ml SI(MOD-sp2) 18.2 ml/m\S\2 SV(MOD-bp) 30.1 ml SI(MOD-bp) 19.3 ml/m\S\2 SV(sp4-el) 29.0 ml SI(sp4-el) 18.6 ml/m\S\2 SV(sp2-el) 29.3 ml SI(sp2-el) 18.7 ml/m\S\2 Doppler Measurements and Calculations MV E max alisson 77.6 cm/sec MV A max alisson 94.4 cm/sec MV E/A 0.82 MV dec time 0.31 sec Ao V2 max 171.3 cm/sec Ao max PG 11.7 mmHg Ao max PG (full) 2.2 mmHg LV V1 max PG 9.5 mmHg LV V1 max 154.2 cm/sec PA V2 max 94.4 cm/sec PA max PG 3.6 mmHg TR max alisson 236.9 cm/sec RVSP(TR) 25.4 mmHg RAP systole 3.0 mmHg
--- NOTE | 2017-04-14 13:34 | CARDIOLOGY CONSULTATION ---
DATE OF CONSULTATION: 04/14/2017 TIME: 12:22 p.m. CONSULTING CLINICIAN: EMILY Huerta REASON FOR CONSULTATION: Elevated troponins and ECG changes. HISTORY OF PRESENT ILLNESS: Ms. Loya is a pleasant 86-year-old female with dementia, hypertension, and dyslipidemia, who presented to [facility] with symptoms concerning for a viral illness, specifically to flu. Her son apparently was diagnosed with influenza A recently and she develops symptoms similar to his. She states that her symptoms consisted of nausea, significant fatigue, mild cough, but no sputum production and decreased appetite. She believes that these symptoms started approximately a day or so, but documentation states that she has had a decreased p.o. intake over the past several days and that her symptoms overall started a few days prior to arrival. She is a poor historian. She did not recall how many children that she has had. She denies chest pain, shortness of breath, syncope, near syncope, palpitations, fevers or chills; however, she does have elevated temperatures today as per nursing staff. REVIEW OF SYSTEMS: As above and otherwise unremarkable or unobtainable secondary to the patient's dementia. PAST MEDICAL HISTORY: 1. Dementia. 2. Hypertension. 3. Dyslipidemia. 4. Sciatica. 5. Esophageal reflux. 6. Diverticulosis. HOME MEDICATIONS: Include aspirin 81 mg daily, Lipitor 20 mg, lisinopril 10 mg, montelukast and Zantac. INPATIENT MEDICATIONS: Include aspirin 81 mg daily, Lipitor 20 mg every other day, Aricept 10 mg daily, lisinopril 10 mg daily, Singulair 10 mg at bedtime, Tamiflu 30 mg p.o. b.i.d., normal saline with potassium chloride at 50 mL per hour, and Zantac 150 mg daily. She also received fluid bolus in the ER. ALLERGIES: LISTED NITROFURANTOIN AND PENICILLINS WELL ESTROGENS. SOCIAL HISTORY: Denies tobacco, alcohol or drug abuse. She is a . She lives in [place] with her son, Terry. She is currently alone in her hospital room. She does not recall how many children she has. FAMILY HISTORY: She does not recall premature CAD. PHYSICAL EXAMINATION: VITAL SIGNS: Temperature currently 38.1 degrees, heart rate 76 beats per minute, respiratory rate 20, blood pressure 118/63 mmHg, and oxygen saturation is 96% on room air. Weight 56.2 kg. GENERAL: In no acute distress. She is alert. HEENT: Anicteric sclerae. NECK: No appreciable JVD. No bruits. Normal carotid upstrokes bilaterally. CARDIAC EXAMINATION: PMI was nonpalpable. There was no ventricular heave. Regular, normal S1 and S2. 2/6 systolic murmur best heard at the apex. No rubs or gallops. LUNGS: Clear to auscultation bilaterally without wheezes, rales or rhonchi. ABDOMEN: Soft, nontender, and nondistended. Normoactive bowel sounds. EXTREMITIES: 2+ radial pulses bilaterally. 2+ dorsalis pedis pulses bilaterally. No cyanosis or edema. PSYCHIATRIC: Affect appears appropriate. LABORATORY DATA: Sodium 137, potassium 3.9, BUN 13, and creatinine 0.83. Hemoglobin A1c is 6.1. Magnesium 2.2. Troponin was initially 0.086 and has increased to 0.179. HDL 44, LDL 28, triglycerides 95, and total cholesterol 91. Albumin 3.7. AST 18 and ALT 23. WBC 3.03, hemoglobin 12.5, and platelets 137. INR is 1. Influenza A and B antigens are negative. Blood cultures and urine cultures are pending. ECG on 04/13/2017 at 20:38 demonstrated sinus rhythm at 82 beats per minute with nonspecific ST/T wave abnormality. Repeat ECG on 04/14/2017 at 07:11 demonstrated sinus rhythm at 72 beats per minute with anterior ST/T wave abnormality with inverted T waves now present in the anterior leads compared to prior. Repeat ECG on 04/14/2017 at 10:29 demonstrated sinus rhythm at 72 beats per minute with nonspecific T-wave abnormality. There was improvement in the anterior T-wave inversions. Echocardiogram images were personally reviewed, demonstrating a small left ventricular size with hyperdynamic systolic function and an EF greater than 70%. There was normal wall motion. No LVH. Type 1 diastolic dysfunction. There appeared to be systolic anterior motion of the mitral chordae structures with intracavitary left ventricular peak gradient of 20 mmHg. There was mild mitral regurgitation and normal RVSP of 25 mmHg. ASSESSMENT AND PLAN: 1. Abnormal ECG: She did have some changes in her ECG, which have since improved from earlier this morning. She gives no symptoms concerning for acute coronary syndrome. These issues have also occurred in the setting of a febrile illness, likely viral. Recommend conservative management. 2. Elevated troponins: Her troponins are elevated, but are not at the diagnostic level of the myocardial infarction. She did not present with acute coronary syndrome. Troponin elevation may be secondary to her acute illness with demand ischemia and also in the setting of a hyperdynamic left ventricle with an intracavitary gradient. Ischemic evaluation is not recommended at this time. There is no indication for urgent cardiac catheterization. Trend troponins until they have peaked. Anticoagulation is not necessarily indicated for her troponin elevation at this time. 3. Hyperdynamic left ventricle: Could be secondary to the fact that the echo was done while she was febrile. Would avoid dehydration. If she requires further antihypertensive agents, would recommend low dose beta maico. Her left ventricle was also hyperdynamic on her prior echo in 2008 upon personal review. So, this does not appear to be a new finding, but could be exacerbated by febrile illness. 4. Left ventricular cavitary gradient: Recommend initiating a low dose beta maico. Can hold lisinopril for now. Beta maico will allow for a longer diastolic filling time, which may improve the intracavitary gradient and will also have negative inotropic effect, which may also improve her gradient. 5. Hypertension: Replace lisinopril with beta maico for now, which may improve her cardiac hemodynamics. Monitor for bradycardia. 6. Mitral regurgitation: Nonsevere. No further evaluation recommended at this time. 7. Disposition: The patient's care has been discussed with EMILY Mariee in the primary hospitalist service. Please call with any other questions or concerns. She is being treated empirically for influenza as per primary service. Thank you for allowing me to participate in MsFelecia Loya. Sincerely, CARLOS
[2017-04-14 15:01] LABS: CKMB 0.9 ng/ml (0.5-3.6)
[2017-04-14] MEDS: ATORVASTATIN 20 MG TAB PO SCH (17:21)
[2017-04-14] MEDS: MONTELUKAST SOD 10 MG TAB PO SCH (21:13)
[2017-04-14] MEDS: METOPROLOL TARTRATE 25 MG TAB PO SCH (21:13)
[2017-04-15] VITALS (12 sets, daily range): BP systolic 109–124; BP diastolic 53–78; PULSE 55–76; TEMP 36.9–39; O2SAT 91–96
[2017-04-15 07:04] LABS: BASO % 0.2 %; BASO ABS # 0.01 K/uL (0-0.2); EOS % 1.3 %; EOS ABS # 0.06 K/uL (0-0.5); HEMATOCRIT 32.5 % (37-47); HEMOGLOBIN 10.6 g/dL (12.0-16.0); LYMPH % 24.9 %; LYMPH ABS # 1.11 K/uL (1.2-3.4); MEAN CORPUSCULAR HGB CONC 32.6 g/dl (32-36); MONO % 11.7 %; MONO ABS # 0.52 K/uL (0.11-0.59); NEUT % 61.9 %; NEUT ABS # 2.75 K/uL (1.4-6.5); PLATELET COUNT 110 K/uL (130-400); RED CELL DISTRIBUTION WIDTH CV 14.6 % (11.5-14.5); WHITE BLOOD COUNT 4.45 K/uL (4.8-10.8)
[2017-04-15 07:11] LABS: INR 1.1 (0.9-1.1); PTT PATIENT 30.9 SECONDS (21.0-31.0)
[2017-04-15 07:35] LABS: CALCIUM 8.4 mg/dl (8.5-10.1); CREATININE 0.8 mg/dl (0.60-1.20); POTASSIUM 3.9 mmol/L (3.5-5.1)
[2017-04-15] MEDS: ACETAMINOPHEN 325 MG TAB PO PRN (07:35)
[2017-04-15] MEDS: DONEPEZIL HCL 10 MG TAB PO SCH (07:36)
[2017-04-15] MEDS: CEROVITE ADV FORMULA TAB PO SCH (07:36)
[2017-04-15] MEDS: RANITIDINE HCL 150 MG TAB PO SCH (07:36)
[2017-04-15] MEDS: ASPIRIN 81 MG ECTAB PO SCH (07:36)
[2017-04-15] MEDS: CALCIUM 600MG + VIT D 400 IU TAB PO SCH ×2 (07:36→20:36)
[2017-04-15] MEDS: CHOLECALCIFEROL 1000 INTER.UNIT TAB PO SCH (07:36)
[2017-04-15] MEDS: HEPARIN SOD 5000 UNIT/0.5 ML CARP SQ SCH ×2 (07:41→20:43)
[2017-04-15] MEDS: METOPROLOL TARTRATE 25 MG TAB PO SCH ×2 (07:41→20:00)
[2017-04-15] MEDS: OSELTAMIVIR PHOSPHATE SUSP 30 MG/5 ML UDP PO SCH ×2 (07:43→20:36)
[2017-04-15] MEDS ORDERED: LISINOPRIL 10 MG TAB PO SCH (09:00)
--- NOTE | 2017-04-15 10:14 | Hospitalist Progress Note ---
Hospitalist Progress Note Date of Service Apr 15, 2017. (Naima Dale ., EMILY) Subjective Pt evaluation today including: conversation w/ patient, physical exam, chart review, lab review, review of inpatient medication list Voiding: no voiding problems Ms. Loya states that she feels worse today. She is having some diarrhea. She continues to spike fevers. ROS Constitutional: no chills, aches, sweats or fever Respiratory: no sob,cough, sputum, or wheezing Cardiac: no chest pain, palpitations, edema, orthopnea or lightheadedness GI: no abdominal pain, nausea, vomiting, constipation : no dysuria or hesitancy Extremities: no joint pain or weakness Skin: no rash All other systems reviewed and negative (Naima Dale .EMILY) Medications Medications Administered Medications (Trade) Dose Ordered Sig/Johanne Route Start Time Stop Time Status Last Admin Dose Admin Sodium Chloride 250 ml @ 999 mls/hr Q16M STAT IV 04/13/17 20:13 04/13/17 20:28 DC 04/13/17 20:48 999 MLS/HR Sodium Chloride 1,000 ml @ 100 mls/hr Q10H STAT IV 04/13/17 20:13 04/14/17 00:48 DC 04/13/17 20:48 100 MLS/HR Heparin Sodium (Porcine) (Heparin Sq 5000 Unit/0.5ml) 5,000 unit Q12 SQ 04/14/17 09:00 05/14/17 08:59 04/15/17 07:41 5,000 UNIT Potassium Chloride/Sodium Chloride 1,000 ml @ 50 mls/hr Q20H IV 04/14/17 00:50 05/14/17 00:49 04/14/17 20:59 50 MLS/HR Acetaminophen (Tylenol Tab) 650 mg Q4H PRN PO 04/13/17 23:30 05/13/17 23:29 04/15/17 07:35 650 MG Aspirin (Ecotrin Tab) 81 mg DAILY PO 04/14/17 09:00 05/14/17 08:59 04/15/17 07:36 81 MG Atorvastatin Calcium (Lipitor Tab) 20 mg QDD PO 04/14/17 16:45 05/14/17 17:59 04/14/17 17:21 20 MG Montelukast Sodium (Singulair Tab) 10 mg HS PO 04/14/17 21:00 05/14/17 20:59 04/14/17 21:13 10 MG Ranitidine HCl (zANTac TAB) 150 mg QAM PO 04/14/17 09:00 05/14/17 08:59 04/15/17 07:36 150 MG Calcium/Vitamin D (Caltrate Plus Tab) 1 tab BID PO 04/14/17 09:00 05/14/17 08:59 04/15/17 07:36 1 TAB Cholecalciferol (Vitamin D Tab) 2,000 inter.unit QAM PO 04/14/17 09:00 05/14/17 08:59 04/15/17 07:36 2,000 INTER.UNIT Donepezil HCl (Aricept Tab) 10 mg QAM PO 04/14/17 09:00 05/14/17 08:59 04/15/17 07:36 10 MG Multivitamins/ Minerals (Multivitamin W/ Minerals Tab) 1 tab QAM PO 04/14/17 09:00 05/14/17 08:59 04/15/17 07:36 1 TAB Oseltamivir Phosphate (Tamiflu Susp) 30 mg BID PO 04/14/17 01:00 04/19/17 00:59 04/15/17 07:43 30 MG Metoprolol Tartrate (Lopressor Tab) 25 mg BID PO 04/14/17 21:00 05/14/17 20:59 04/15/17 07:41 25 MG (Naima Dale, EMILY) Objective Vital Signs Date Time Temp Pulse Resp B/P (MAP) Pulse Ox O2 Delivery O2 Flow Rate FiO2 04/15/17 08:00 96 Room Air 2.0 04/15/17 07:25 39.0 76 20 123/65 (84) 91 Room Air 04/15/17 04:00 37.6 72 16 117/63 (81) 93 Room Air 04/15/17 04:00 96 Room Air 04/15/17 00:00 38.5 66 22 116/60 (78) 96 Room Air 04/15/17 00:00 96 Room Air 04/14/17 20:00 Room Air 04/14/17 20:00 37.2 76 18 119/62 (81) 96 04/14/17 16:13 37.4 70 18 118/60 (79) 98 Room Air 04/14/17 16:00 Room Air 04/14/17 12:00 96 Room Air 2.0 04/14/17 11:34 38.1 76 118/63 (81) 96 Room Air (Naima Dale CRNP) Physical Exam Notes: General: no distress Eyes: normal inspection, PERLL Respiratory: chest non tender, clear to auscultation, normal breath sounds, no respiratory distress, no accessory muscle use Cardiac: regular rate and rhythm, no rub or gallop, no murmur, no edema, no jvd GI/: active bowel sounds, no abd pain or tenderness, soft, non distended Extremities: normal range of motion, normal strength, non tender Neuro/Psych: alert and oriented to self, normal mood and affect Skin: normal color, dry (Naima Dale CRNP) Laboratory Results Last 24 Hours Test 04/14/17 13:54 04/15/17 06:22 Total Creatine Kinase 40 U/L Creatine Kinase MB 0.9 ng/ml Creatine Kinase MB Ratio 2.3 Troponin I 0.101 ng/ml White Blood Count 4.45 K/uL Red Blood Count 3.78 M/uL Hemoglobin 10.6 g/dL Hematocrit 32.5 % Mean Corpuscular Volume 86.0 fL Mean Corpuscular Hemoglobin 28.0 pg Mean Corpuscular Hemoglobin Concent 32.6 g/dl Platelet Count 110 K/uL Mean Platelet Volume 10.0 fL Neutrophils (%) (Auto) 61.9 % Lymphocytes (%) (Auto) 24.9 % Monocytes (%) (Auto) 11.7 % Eosinophils (%) (Auto) 1.3 % Basophils (%) (Auto) 0.2 % Neutrophils # (Auto) 2.75 K/uL Lymphocytes # (Auto) 1.11 K/uL Monocytes # (Auto) 0.52 K/uL Eosinophils # (Auto) 0.06 K/uL Basophils # (Auto) 0.01 K/uL RDW Standard Deviation 46.0 fL RDW Coefficient of Variation 14.6 % Immature Granulocyte % (Auto) 0.0 % Immature Granulocyte # (Auto) 0.00 K/uL Prothrombin Time 11.2 SECONDS Prothromb Time International Ratio 1.1 Activated Partial Thromboplast Time 30.9 SECONDS Partial Thromboplastin Ratio 1.2 Sodium Level 137 mmol/L Potassium Level 3.9 mmol/L Chloride Level 105 mmol/L Carbon Dioxide Level 26 mmol/L Anion Gap 6.0 mmol/L Blood Urea Nitrogen 12 mg/dl Creatinine 0.80 mg/dl Est Creatinine Clear Calc Drug Dose 38.5 ml/min Estimated GFR () 76.3 Estimated GFR (Non- 65.8 BUN/Creatinine Ratio 14.5 Random Glucose 83 mg/dl Calcium Level 8.4 mg/dl Magnesium Level 1.8 mg/dl (Naima Dale CRNP) Assessment and Plan Ms. Loya is an 86 year old woman with viral illness likely influenza Viral illness -Flu type illness with household contact positive for influenza A-- Influenza swab is negative, however, because of the exposure should be treated empirically with Tamiflu renal dose. - Symptomatic treatment with Zofran and Protonix. - UC, BC show no growth - Acetaminophen q8h scheduled in attempt to mitigate the fevers' effect on exacerbating her cardiac strain Diarrhea - likely part of the viral process but will order Cdiff Elevated troponin with lateral ST changes, htn - continue tele monitoring - patient does appear to have ischemic changes on EKG in lateral leads - trops peaked at .179 and trended down - consulted and discussed with cardiology - likely due to illness rather than CAD - Echo showed hyperdynamic left ventricle and type I diastolic dysfunction - Continue ASA, hold lisinopril per cardiology rec Hyperlipidemia-- - Continue atorvastatin 20 mg daily. - lipids wnl GERD-- Continue ranitidine Full code subq heparin Transfer to med surg (Naima Dale CRNP) CATERER HELPER Physician Supervision Note: I interviewed and examined the patient. Discussed with Naima Dale CATERER HELPER and agree with findings and plan as documented in the note. Any exceptions or clarifications are listed here: None Patient is doing well she is recovering from her influenza however still having mild low-grade fevers she has no increased shortness of breath or cough is reduced Vital signs exception of fevers are stable Cardiac exam is regular lungs have some mild coarse breath sounds at the bases but good air movement She is pleasantly confused with mild dementia Continue supportive care with Tamiflu and antipyretics there is no secondary source of infection suspected at this time will continue good physical surveillance. We will have her evaluate by PT and OT before returning to her home disposition Patient has mild elevation of her troponin this is likely due to physiological stress and can be considered a type II LA Documented By: Selvin Felix (Selvin Felix M.D.)
[2017-04-15] MEDS: ACETAMINOPHEN 500 MG TAB PO SCH ×2 (13:16→21:47)
[2017-04-15] MEDS: ATORVASTATIN 20 MG TAB PO SCH (16:38)
[2017-04-15] MEDS: NSS + 20MEQ KCL 1000ML 1,000 ML IV SCH (16:39)
[2017-04-15] MEDS: MONTELUKAST SOD 10 MG TAB PO SCH (21:48)
[2017-04-16] VITALS (7 sets, daily range): BP systolic 105–160; BP diastolic 60–74; PULSE 51–69; TEMP 36.4–36.9; O2SAT 95–100
[2017-04-16] MEDS: ACETAMINOPHEN 500 MG TAB PO SCH ×3 (06:20→22:24)
[2017-04-16 07:28] LABS: BASO % 0.6 %; BASO ABS # 0.02 K/uL (0-0.2); EOS % 5.4 %; EOS ABS # 0.17 K/uL (0-0.5); HEMATOCRIT 33.1 % (37-47); LYMPH % 49.5 %; LYMPH ABS # 1.56 K/uL (1.2-3.4); MEAN CELL VOLUME 85.3 fL (80-100); MEAN CORPUSCULAR HEMOGLOBIN 28.4 pg (25-34); MEAN CORPUSCULAR HGB CONC 33.2 g/dl (32-36); MEAN PLATELET VOLUME 9.6 fL (7.4-10.4); MONO % 12.1 %; MONO ABS # 0.38 K/uL (0.11-0.59); NEUT % 32.4 %; NEUT ABS # 1.02 K/uL (1.4-6.5); PLATELET COUNT 109 K/uL (130-400); RED CELL DISTRIBUTION WIDTH CV 14.6 % (11.5-14.5); RED CELL DISTRIBUTION WIDTH SD 45.8 fL (36.4-46.3); WHITE BLOOD COUNT 3.15 K/uL (4.8-10.8)
[2017-04-16 07:39] LABS: PTT PATIENT 35.4 SECONDS (21.0-31.0)
[2017-04-16 07:56] LABS: CALCIUM 8.6 mg/dl (8.5-10.1); CREATININE 0.65 mg/dl (0.60-1.20)
[2017-04-16] MEDS: DONEPEZIL HCL 10 MG TAB PO SCH (08:28)
[2017-04-16] MEDS: CALCIUM 600MG + VIT D 400 IU TAB PO SCH ×2 (08:29→19:35)
[2017-04-16] MEDS: ASPIRIN 81 MG ECTAB PO SCH (08:29)
[2017-04-16] MEDS: METOPROLOL TARTRATE 25 MG TAB PO SCH ×2 (08:29→19:39)
[2017-04-16] MEDS: CEROVITE ADV FORMULA TAB PO SCH (08:30)
[2017-04-16] MEDS: CHOLECALCIFEROL 1000 INTER.UNIT TAB PO SCH (08:31)
[2017-04-16] MEDS: RANITIDINE HCL 150 MG TAB PO SCH (08:31)
[2017-04-16] MEDS: OSELTAMIVIR PHOSPHATE SUSP 30 MG/5 ML UDP PO SCH ×2 (08:31→19:41)
[2017-04-16] MEDS: HEPARIN SOD 5000 UNIT/0.5 ML CARP SQ SCH ×2 (12:15→21:21)
[2017-04-16] MEDS: NSS + 20MEQ KCL 1000ML 1,000 ML IV SCH (12:18)
--- NOTE | 2017-04-16 14:32 | Hospitalist Progress Note ---
Hospitalist Progress Note Date of Service Apr 16, 2017. (Naima Dale ., EMILY) Subjective Pt evaluation today including: conversation w/ patient, physical exam, chart review, lab review, review of inpatient medication list Voiding: no incontinence Ms. Loya is feeling much better today. She has also been afebrile over the night and today. ROS Constitutional: no chills, aches, sweats or fever Respiratory: no sob,cough, sputum, or wheezing Cardiac: no chest pain, palpitations, edema, orthopnea or lightheadedness GI: no abdominal pain, nausea, vomiting, diarrhea or constipation : no dysuria or hesitancy Extremities: no joint pain or weakness Skin: no rash All other systems reviewed and negative (Naima Dale .EMILY) Medications Medications Administered Medications (Trade) Dose Ordered Sig/Johanne Route Start Time Stop Time Status Last Admin Dose Admin Sodium Chloride 250 ml @ 999 mls/hr Q16M STAT IV 04/13/17 20:13 04/13/17 20:28 DC 04/13/17 20:48 999 MLS/HR Sodium Chloride 1,000 ml @ 100 mls/hr Q10H STAT IV 04/13/17 20:13 04/14/17 00:48 DC 04/13/17 20:48 100 MLS/HR Heparin Sodium (Porcine) (Heparin Sq 5000 Unit/0.5ml) 5,000 unit Q12 SQ 04/14/17 09:00 05/14/17 08:59 04/16/17 12:15 5,000 UNIT Potassium Chloride/Sodium Chloride 1,000 ml @ 50 mls/hr Q20H IV 04/14/17 00:50 05/14/17 00:49 04/16/17 12:18 50 MLS/HR Acetaminophen (Tylenol Tab) 650 mg Q4H PRN PO 04/13/17 23:30 04/15/17 10:08 DC 04/15/17 07:35 650 MG Aspirin (Ecotrin Tab) 81 mg DAILY PO 04/14/17 09:00 05/14/17 08:59 04/16/17 08:29 81 MG Atorvastatin Calcium (Lipitor Tab) 20 mg QDD PO 04/14/17 16:45 05/14/17 17:59 04/15/17 16:38 20 MG Montelukast Sodium (Singulair Tab) 10 mg HS PO 04/14/17 21:00 05/14/17 20:59 04/15/17 21:48 10 MG Ranitidine HCl (zANTac TAB) 150 mg QAM PO 04/14/17 09:00 05/14/17 08:59 04/16/17 08:31 150 MG Calcium/Vitamin D (Caltrate Plus Tab) 1 tab BID PO 04/14/17 09:00 05/14/17 08:59 04/16/17 08:29 1 TAB Cholecalciferol (Vitamin D Tab) 2,000 inter.unit QAM PO 04/14/17 09:00 05/14/17 08:59 04/16/17 08:31 2,000 INTER.UNIT Donepezil HCl (Aricept Tab) 10 mg QAM PO 04/14/17 09:00 05/14/17 08:59 04/16/17 08:28 10 MG Multivitamins/ Minerals (Multivitamin W/ Minerals Tab) 1 tab QAM PO 04/14/17 09:00 05/14/17 08:59 04/16/17 08:30 1 TAB Oseltamivir Phosphate (Tamiflu Susp) 30 mg BID PO 04/14/17 01:00 04/19/17 00:59 04/16/17 08:31 30 MG Metoprolol Tartrate (Lopressor Tab) 25 mg BID PO 04/14/17 21:00 05/14/17 20:59 04/16/17 08:29 25 MG Acetaminophen (Tylenol Tab) 1,000 mg Q8 PO 04/15/17 14:00 05/15/17 13:59 04/16/17 14:14 1,000 MG (Naima Dale CRNP) Objective Vital Signs Date Time Temp Pulse Resp B/P (MAP) Pulse Ox O2 Delivery O2 Flow Rate FiO2 04/16/17 07:44 36.6 51 17 105/60 (75) 95 Room Air 04/16/17 00:13 36.9 56 18 105/61 (76) 95 Room Air 04/16/17 00:00 Room Air 04/15/17 20:43 55 124/78 (93) 04/15/17 17:30 36.9 60 20 95 2.0 04/15/17 17:25 95 Room Air 04/15/17 15:45 36.9 60 20 115/60 (78) 95 Room Air 04/15/17 15:35 36.9 57 16 109/53 (71) 96 Room Air (Naima Dale CRNP) Physical Exam Notes: General: no distress Eyes: normal inspection, PERLL Respiratory: chest non tender, clear to auscultation, normal breath sounds, no respiratory distress, no accessory muscle use Cardiac: regular rate and rhythm, no rub or gallop, no murmur, no edema, no jvd GI/: active bowel sounds, no abd pain or tenderness, soft, non distended Extremities: normal range of motion, normal strength, non tender Neuro/Psych: alert and oriented to person and place, normal mood and affect Skin: normal color, dry (Naima Dale CRNP) Laboratory Results Last 24 Hours Test 04/16/17 07:05 White Blood Count 3.15 K/uL Red Blood Count 3.88 M/uL Hemoglobin 11.0 g/dL Hematocrit 33.1 % Mean Corpuscular Volume 85.3 fL Mean Corpuscular Hemoglobin 28.4 pg Mean Corpuscular Hemoglobin Concent 33.2 g/dl Platelet Count 109 K/uL Mean Platelet Volume 9.6 fL Neutrophils (%) (Auto) 32.4 % Lymphocytes (%) (Auto) 49.5 % Monocytes (%) (Auto) 12.1 % Eosinophils (%) (Auto) 5.4 % Basophils (%) (Auto) 0.6 % Neutrophils # (Auto) 1.02 K/uL Lymphocytes # (Auto) 1.56 K/uL Monocytes # (Auto) 0.38 K/uL Eosinophils # (Auto) 0.17 K/uL Basophils # (Auto) 0.02 K/uL RDW Standard Deviation 45.8 fL RDW Coefficient of Variation 14.6 % Immature Granulocyte % (Auto) 0.0 % Immature Granulocyte # (Auto) 0.00 K/uL Prothrombin Time 10.8 SECONDS Prothromb Time International Ratio 1.0 Activated Partial Thromboplast Time 35.4 SECONDS Partial Thromboplastin Ratio 1.4 Sodium Level 141 mmol/L Potassium Level 4.0 mmol/L Chloride Level 109 mmol/L Carbon Dioxide Level 26 mmol/L Anion Gap 6.0 mmol/L Blood Urea Nitrogen 9 mg/dl Creatinine 0.65 mg/dl Est Creatinine Clear Calc Drug Dose 47.3 ml/min Estimated GFR () 91.9 Estimated GFR (Non- 79.3 BUN/Creatinine Ratio 14.0 Random Glucose 85 mg/dl Calcium Level 8.6 mg/dl Magnesium Level 1.9 mg/dl (Naima Dale .EMILY) Assessment and Plan Ms. Loya is an 86 year old woman with viral illness likely influenza Viral illness -Flu type illness with household contact positive for influenza A-- Influenza swab is negative, however, because of the exposure should be treated empirically with Tamiflu renal dose. - Symptomatic treatment with Zofran and Protonix. - UC, BC show no growth - Acetaminophen q8h scheduled in attempt to mitigate the fevers' effect on exacerbating her cardiac strain - afbrile since yesterday - C.diff negative Elevated troponin with lateral ST changes, htn -patient did appear to have ischemic changes on EKG in lateral leads - trops peaked at .179 and trended down - consulted and discussed with cardiology - likely due to illness rather than CAD - Echo showed hyperdynamic left ventricle and type I diastolic dysfunction - Continue ASA, hold lisinopril per cardiology rec Hyperlipidemia-- - Continue atorvastatin 20 mg daily. - lipids wnl GERD-- Continue ranitidine Full code subq heparin Dispo - pending PT/OT evals. Patient lives with son (Naima Dale .EMILY) EXECUTIVE MEETING MANAGER Physician Supervision Note: I interviewed and examined the patient. Discussed with Naima Dale EXECUTIVE MEETING MANAGER and agree with findings and plan as documented in the note. Any exceptions or clarifications are listed here: None this pt is doing well, will need PT/OT prior to going home and will likely need some home health supervision for the next few weeks vitals are stable no fever lungs are clear car is regular acute influenza, improving, will need to assure function before going home Documented By: Selvin Felix (Selvin Felix M.D.)
[2017-04-16] MEDS: ATORVASTATIN 20 MG TAB PO SCH (16:24)
[2017-04-16] MEDS: MONTELUKAST SOD 10 MG TAB PO SCH (21:13)
[2017-04-17] MEDS: ACETAMINOPHEN 500 MG TAB PO SCH ×3 (05:37→21:47)
[2017-04-17 07:28] VITALS: BP 123/72; PULSE 53; TEMP 36.8; O2SAT 98
[2017-04-17] MEDS: NSS + 20MEQ KCL 1000ML 1,000 ML IV SCH (07:40)
[2017-04-17 08:00] VITALS: O2SAT 98
[2017-04-17] MEDS: METOPROLOL TARTRATE 25 MG TAB PO SCH ×2 (09:24→21:47)
[2017-04-17] MEDS: CALCIUM 600MG + VIT D 400 IU TAB PO SCH ×2 (09:25→21:47)
[2017-04-17] MEDS: CEROVITE ADV FORMULA TAB PO SCH (09:25)
[2017-04-17] MEDS: RANITIDINE HCL 150 MG TAB PO SCH (09:25)
[2017-04-17] MEDS: DONEPEZIL HCL 10 MG TAB PO SCH (09:25)
[2017-04-17] MEDS: CHOLECALCIFEROL 1000 INTER.UNIT TAB PO SCH (09:25)
[2017-04-17] MEDS: ASPIRIN 81 MG ECTAB PO SCH (09:26)
[2017-04-17] MEDS: HEPARIN SOD 5000 UNIT/0.5 ML CARP SQ SCH ×2 (09:29→21:52)
[2017-04-17] MEDS: OSELTAMIVIR PHOSPHATE SUSP 30 MG/5 ML UDP PO SCH ×2 (11:25→21:47)
[2017-04-17] MEDS ORDERED: LOPERAMIDE HCL 2 MG CAP PO ONE (14:45)
[2017-04-17 15:39] VITALS: BP 123/65; PULSE 56; TEMP 36.8; O2SAT 99
[2017-04-17 16:00] VITALS: O2SAT 99
--- NOTE | 2017-04-17 17:28 | Progress Note ---
Subjective Date of Service: Apr 17, 2017. Subjective pt feels weak and is concerned about diarrhea, she did have a negative C Diff she is breathing easily and only occasional cough Problem List Medical Problems: (1) Cough Status: Acute (2) Dehydration Status: Acute (3) Elevated troponin Status: Acute (4) Gastroenteritis Status: Acute (5) Influenza-like illness Status: Acute (6) Nausea Status: Acute (7) Weakness Status: Acute Review of Systems Constitutional: No fever, No chills, No weakness Respiratory: No cough, No shortness of breath, No dyspnea on exertion Cardiac: No chest pain, No PND, No edema Abdomen: No pain, No nausea, No vomiting, No diarrhea Musculoskeletal: No joint pain, No muscle pain Female : No dysuria, No hematuria Psychiatric: No depression symptoms, No anhedonism Objective Vital Signs Date Time Temp Pulse Resp B/P (MAP) Pulse Ox O2 Delivery O2 Flow Rate FiO2 04/17/17 15:39 36.8 56 18 123/65 (84) 99 Room Air 04/17/17 08:00 98 Room Air 04/17/17 07:28 36.8 53 18 123/72 (89) 98 04/17/17 00:00 Room Air 04/16/17 23:10 36.4 51 20 160/71 (100) 99 Room Air 04/16/17 19:41 69 139/70 (93) Physical Exam General Appearance: WD/WN, no apparent distress Eyes: normal inspection, PERRL, sclerae normal Neck: supple, no JVD Respiratory/Chest: chest non-tender, lungs clear Cardiovascular: regular rate, rhythm, no murmur Abdomen: normal bowel sounds, non tender, soft Extremities: no pedal edema, no calf tenderness Neurologic/Psychiatric: alert, oriented x 3 Assessment and Plan Ms. Loya is an 86 year old woman with viral illness likely influenza Viral illness -Flu type illness with household contact positive for influenza A-- Influenza swab is negative, however, because of the exposure should was treated with Tamiflu renal dose. - UC, BC show no growth - Acetaminophen q8h scheduled in attempt to mitigate the fevers' effect on exacerbating her cardiac strain - afebrile since yesterday - C.diff negative Elevated troponin with lateral ST changes, htn - consulted and discussed with cardiology - likely due to illness rather than CAD, this will be type 2 mi - Echo showed hyperdynamic left ventricle and type I diastolic dysfunction - Continue ASA, hold lisinopril per cardiology rec Hyperlipidemia--atorvastatin 20 mg daily. GERD-- ranitidine Full code subq heparin Dispo - pending PT/OT evals. Patient lives with son, attempted to call son, no answer
[2017-04-17] MEDS: PSYLLIUM 58.6% PWD PACK S\\F PO SCH (17:38)
[2017-04-17] MEDS: ATORVASTATIN 20 MG TAB PO SCH (17:39)
[2017-04-17 21:44] VITALS: BP 135/73; PULSE 56
[2017-04-17] MEDS: MONTELUKAST SOD 10 MG TAB PO SCH (21:48)
[2017-04-18 00:10] VITALS: BP 144/66; PULSE 55; TEMP 37; O2SAT 96
[2017-04-18] MEDS: NSS + 20MEQ KCL 1000ML 1,000 ML IV SCH (03:04)
[2017-04-18] MEDS: ACETAMINOPHEN 500 MG TAB PO SCH (06:13)
[2017-04-18] MEDS: METOPROLOL TARTRATE 25 MG TAB PO SCH ×2 (08:00→20:00)
[2017-04-18] MEDS: ASPIRIN 81 MG ECTAB PO SCH (09:24)
[2017-04-18] MEDS: CHOLECALCIFEROL 1000 INTER.UNIT TAB PO SCH (09:25)
[2017-04-18] MEDS: DONEPEZIL HCL 10 MG TAB PO SCH (09:25)
[2017-04-18] MEDS: RANITIDINE HCL 150 MG TAB PO SCH (09:26)
[2017-04-18] MEDS: CEROVITE ADV FORMULA TAB PO SCH (09:26)
[2017-04-18] MEDS: CALCIUM 600MG + VIT D 400 IU TAB PO SCH ×2 (09:26→20:18)
[2017-04-18] MEDS: PSYLLIUM 58.6% PWD PACK S\\F PO SCH (09:29)
[2017-04-18] MEDS: OSELTAMIVIR PHOSPHATE SUSP 30 MG/5 ML UDP PO SCH ×2 (09:30→20:18)
[2017-04-18] MEDS: HEPARIN SOD 5000 UNIT/0.5 ML CARP SQ SCH ×2 (09:36→20:22)
--- NOTE | 2017-04-18 12:33 | Progress Note ---
Subjective Date of Service: Apr 18, 2017. Subjective pt has had less diarrhea and is ambulating better, has no other concerns Problem List Medical Problems: (1) Cough Status: Acute (2) Dehydration Status: Acute (3) Elevated troponin Status: Acute (4) Gastroenteritis Status: Acute (5) Influenza-like illness Status: Acute (6) Nausea Status: Acute (7) Weakness Status: Acute Review of Systems Constitutional: No fever, No chills Respiratory: No cough, No wheezing, No shortness of breath Cardiac: No chest pain, No edema Abdomen: + diarrhea, No pain, No vomiting Musculoskeletal: No joint pain, No muscle pain Female : No dysuria, No hematuria Psychiatric: No depression symptoms, No anxiety Objective Vital Signs Date Time Temp Pulse Resp B/P (MAP) Pulse Ox O2 Delivery O2 Flow Rate FiO2 04/18/17 08:00 Room Air 04/18/17 00:10 37.0 55 18 144/66 (92) 96 Room Air 04/17/17 23:45 Room Air 04/17/17 21:44 56 135/73 (93) 04/17/17 16:00 99 Room Air 04/17/17 15:39 36.8 56 18 123/65 (84) 99 Room Air Physical Exam General Appearance: WD/WN, + mild distress Eyes: normal inspection, sclerae normal Respiratory/Chest: chest non-tender, lungs clear, normal breath sounds Cardiovascular: regular rate, rhythm, no murmur Abdomen: normal bowel sounds, non tender, soft Extremities: no pedal edema, no calf tenderness Neurologic/Psychiatric: alert, oriented x 3 Assessment and Plan Ms. Loya is an 86 year old woman with viral illness likely influenza Viral illness -Flu type illness with household contact positive for influenza A-- Influenza swab is negative, however, because of the exposure should was treated with Tamiflu renal dose. - UC, BC show no growth - Acetaminophen q8h scheduled in attempt to mitigate the fevers' effect on exacerbating her cardiac strain - afebrile now will make prn - C.diff negative Elevated troponin with lateral ST changes, htn, no chest pain with exertion or exertional dyspnea - consulted and discussed with cardiology - likely due to illness rather than CAD, this will be type 2 mi - Echo showed hyperdynamic left ventricle and type I diastolic dysfunction - Continue ASA, hold lisinopril per cardiology rec Hyperlipidemia--atorvastatin 20 mg daily. GERD-- ranitidine Full code subq heparin Dispo - pending PT/OT evals. Patient lives with son, spoke to son hunter 04/18 will plan on picking up 04/19 spoke to son will cook pickled meat tomorrow
[2017-04-18] MEDS ORDERED: ACETAMINOPHEN 500 MG TAB PO PRN (14:00)
[2017-04-18 14:54] VITALS: BP 151/73; PULSE 67; TEMP 37.1; O2SAT 99
[2017-04-18 16:00] VITALS: O2SAT 99
[2017-04-18] MEDS: ATORVASTATIN 20 MG TAB PO SCH (18:15)
[2017-04-18 20:15] VITALS: BP 130/69; PULSE 58
[2017-04-18] MEDS: MONTELUKAST SOD 10 MG TAB PO SCH (20:18)
[2017-04-18 23:12] VITALS: BP 146/61; PULSE 81; TEMP 36.8; O2SAT 94
[2017-04-19] MEDS: NSS + 20MEQ KCL 1000ML 1,000 ML IV SCH (00:13)
[2017-04-19 07:31] VITALS: BP 117/65; PULSE 59; TEMP 37.3; O2SAT 96
[2017-04-19 08:08] VITALS: PULSE 65
[2017-04-19] MEDS: METOPROLOL TARTRATE 25 MG TAB PO SCH ×2 (08:09→19:44)
[2017-04-19] MEDS: CEROVITE ADV FORMULA TAB PO SCH (08:10)
[2017-04-19] MEDS: RANITIDINE HCL 150 MG TAB PO SCH (08:10)
[2017-04-19] MEDS: CALCIUM 600MG + VIT D 400 IU TAB PO SCH ×2 (08:11→19:44)
[2017-04-19] MEDS: DONEPEZIL HCL 10 MG TAB PO SCH (08:12)
[2017-04-19] MEDS: PSYLLIUM 58.6% PWD PACK S\\F PO SCH (08:12)
[2017-04-19] MEDS: ASPIRIN 81 MG ECTAB PO SCH (08:12)
[2017-04-19] MEDS: CHOLECALCIFEROL 1000 INTER.UNIT TAB PO SCH (08:12)
[2017-04-19] MEDS: HEPARIN SOD 5000 UNIT/0.5 ML CARP SQ SCH ×2 (08:19→21:29)
--- NOTE | 2017-04-19 11:17 | DIAGNOSTIC IMAGING REPORT ---
CHEST ONE VIEW PORTABLE CLINICAL HISTORY: 86 years-old Female presenting with Dyspnea/Flu-Like Symptoms - R/O PNA. TECHNIQUE: Portable upright AP view of the chest was obtained. COMPARISON: 04/13/2017. FINDINGS: Atherosclerosis of the aortic arch. Cardiac silhouette normal in size. Lungs and pleural spaces clear. Osteopenia may be present. Degenerative changes of the spine. Upper abdomen normal. IMPRESSION: 1. No acute cardiopulmonary disease. Electronically signed by: Warren Power M.D. 04/19/2017 11:16 AM Dictated Date/Time: 04/19/2017 11:15 AM
--- NOTE | 2017-04-19 12:01 | Hospitalist Progress Note ---
Hospitalist Progress Note Date of Service Apr 19, 2017. Subjective Pt evaluation today including: conversation w/ patient, conversation w/ family (Terry (phone)), physical exam, chart review, lab review, review of studies, review of inpatient medication list Patient seen and evaluated. No acute events overnight. Reporting feeling slightly better than yesterday but still feeling weak and tired. Continues to have a significant non-productive cough. Crackles auscultated on exam and will obtain CXR. Has been eating and drinking without difficulty. Constitutional: No fever, No chills Respiratory: + cough, No sputum, No dyspnea on exertion, No dyspnea at rest Cardiovascular: No chest pain Abdomen: No pain, No nausea, No vomiting, No diarrhea, No constipation Musculoskeletal: No swelling, No calf pain Female : No dysuria Heme: No abnormal bleeding/bruising Skin: No rash Medications Current Inpatient Medications Medications (Trade) Dose Ordered Sig/Johanne Route Start Time Stop Time Status Last Admin Dose Admin Heparin Sodium (Porcine) (Heparin Sq 5000 Unit/0.5ml) 5,000 unit Q12 SQ 04/14/17 09:00 05/14/17 08:59 04/19/17 08:19 5,000 UNIT Potassium Chloride/Sodium Chloride 1,000 ml @ 50 mls/hr Q20H IV 04/14/17 00:50 05/14/17 00:49 04/19/17 00:13 50 MLS/HR Al Hydrox/Mg Hydrox/Simethicone (Maalox Max Susp) 15 ml Q4H PRN PO 04/13/17 23:30 05/13/17 23:29 Magnesium Hydroxide (Milk Of Magnesia Susp) 30 ml Q12H PRN PO 04/13/17 23:30 05/13/17 23:29 Nitroglycerin (Nitrostat Tab) 0.4 mg UD PRN SL 04/13/17 23:30 05/13/17 23:29 Aspirin (Ecotrin Tab) 81 mg DAILY PO 04/14/17 09:00 05/14/17 08:59 04/19/17 08:12 81 MG Atorvastatin Calcium (Lipitor Tab) 20 mg QDD PO 04/14/17 16:45 05/14/17 17:59 04/18/17 18:15 20 MG Montelukast Sodium (Singulair Tab) 10 mg HS PO 04/14/17 21:00 05/14/17 20:59 04/18/17 20:18 10 MG Ranitidine HCl (zANTac TAB) 150 mg QAM PO 04/14/17 09:00 05/14/17 08:59 04/19/17 08:10 150 MG Calcium/Vitamin D (Caltrate Plus Tab) 1 tab BID PO 04/14/17 09:00 05/14/17 08:59 04/19/17 08:11 1 TAB Cholecalciferol (Vitamin D Tab) 2,000 inter.unit QAM PO 04/14/17 09:00 05/14/17 08:59 04/19/17 08:12 2,000 INTER.UNIT Donepezil HCl (Aricept Tab) 10 mg QAM PO 04/14/17 09:00 05/14/17 08:59 04/19/17 08:12 10 MG Multivitamins/ Minerals (Multivitamin W/ Minerals Tab) 1 tab QAM PO 04/14/17 09:00 05/14/17 08:59 04/19/17 08:10 1 TAB Ondansetron HCl (Zofran Odt) 8 mg Q6H PRN PO 04/13/17 23:45 05/13/17 23:44 04/17/17 00:36 8 MG Metoprolol Tartrate (Lopressor Tab) 25 mg BID PO 04/14/17 21:00 05/14/17 20:59 04/19/17 08:09 25 MG Psyllium Hydrophilic Mucilloid (Metamucil Powder) 1 pkt QAM PO 04/17/17 16:00 05/17/17 15:59 04/19/17 08:12 1 PKT Acetaminophen (Tylenol Tab) 1,000 mg Q8 PRN PO 04/18/17 14:00 05/15/17 13:59 Objective Vital Signs Date Time Temp Pulse Resp B/P (MAP) Pulse Ox O2 Delivery O2 Flow Rate FiO2 04/19/17 08:08 65 04/19/17 07:31 37.3 59 18 117/65 (82) 96 Room Air 04/19/17 00:10 Room Air 04/18/17 23:12 36.8 81 18 146/61 (89) 94 Room Air 04/18/17 20:15 58 130/69 (89) 2/25/18 16:00 99 Room Air 04/18/17 14:54 37.1 67 18 151/73 (99) 99 Room Air Physical Exam General Appearance: WD/WN, no apparent distress Eyes: sclerae normal ENT: hearing grossly normal Neck: supple, no JVD, trachea midline Respiratory/Chest: no respiratory distress, no accessory muscle use, + crackles Cardiovascular: regular rate, rhythm, no gallop, no murmur Abdomen: normal bowel sounds, non tender, soft Extremities: no pedal edema Neurologic/Psychiatric: alert, oriented x 3 Skin: normal color, warm/dry Assessment and Plan Ms. Loya is an 86 year old woman with viral illness likely influenza Viral Illness: Suspect Flu - Renally dosed with Tamiflu and completed therapy - F/U CXR - without consolidation or fluid overload - Can continue Tylenol PRN - has remained afebrile Elevated Troponin/Type 2 AR from Illness and Chronic HTN/HLD: - ASA 81 mg daily and Atorvastatin 20 mg daily - Metoprolol 25 mg BID - Cardiology following - recommend D/C Lisinopril in favor of BB DVT Prophylaxis: Heparin 5000 SC Q12H Code Status: FULL RESUSCITATION Disposition: Discussed with son on the phone. Plan to keep today and ambulate if tolerated and promote up to chair - hopefully home tomorrow - Still feeling generally weak Continued [facility] stay due to: ambulation difficulties (generally weak) Discharge planning: home
[2017-04-19 15:53] VITALS: BP 138/63; PULSE 70; TEMP 36.9; O2SAT 95
[2017-04-19] MEDS: ATORVASTATIN 20 MG TAB PO SCH (19:45)
[2017-04-19 19:46] VITALS: BP 120/56; PULSE 64
[2017-04-19] MEDS: MONTELUKAST SOD 10 MG TAB PO SCH (21:27)
[2017-04-20 01:00] VITALS: BP 121/61; PULSE 56; TEMP 36.9; O2SAT 96
[2017-04-20] MEDS: METOPROLOL TARTRATE 25 MG TAB PO SCH ×3 (08:00→19:38)
[2017-04-20 08:25] VITALS: BP 133/69; PULSE 57; TEMP 36.7; O2SAT 93
[2017-04-20] MEDS: DONEPEZIL HCL 10 MG TAB PO SCH (08:27)
[2017-04-20] MEDS: CALCIUM 600MG + VIT D 400 IU TAB PO SCH ×2 (08:27→19:37)
[2017-04-20] MEDS: PSYLLIUM 58.6% PWD PACK S\\F PO SCH (08:27)
[2017-04-20] MEDS: ASPIRIN 81 MG ECTAB PO SCH (08:27)
[2017-04-20] MEDS: CEROVITE ADV FORMULA TAB PO SCH (08:28)
[2017-04-20] MEDS: CHOLECALCIFEROL 1000 INTER.UNIT TAB PO SCH (08:28)
[2017-04-20] MEDS: RANITIDINE HCL 150 MG TAB PO SCH (08:28)
[2017-04-20] MEDS: HEPARIN SOD 5000 UNIT/0.5 ML CARP SQ SCH ×2 (08:28→19:43)
[2017-04-20 15:37] VITALS: BP 132/69; PULSE 67; TEMP 36.9; O2SAT 94
[2017-04-20] MEDS: ATORVASTATIN 20 MG TAB PO SCH (16:27)
--- NOTE | 2017-04-20 17:12 | Hospitalist Progress Note ---
Hospitalist Progress Note Date of Service Apr 20, 2017. Subjective Pt evaluation today including: conversation w/ patient, physical exam, chart review, lab review, review of studies, review of inpatient medication list Patient seen and evaluated. No acute events overnight. Patient was sitting up in chair with sister at bedside. Reporting she feels a little better today compared to yesterday. Sister states she looks well. Also states that she does have a son and grandson that helps at home when she needs help. Patient continues to have generalized weakness and fatigue. Cough improving but still present. Denies SOB. PT evaluated patient and was recommending rehab. Patient did not seem to express much of an opinion about this. Son would like to pursue. Constitutional: + weakness (generalized), + fatigue, No fever, No chills Respiratory: + cough, No sputum, No dyspnea on exertion, No dyspnea at rest Cardiovascular: No chest pain Abdomen: No pain, No nausea, No vomiting, No diarrhea, No constipation Musculoskeletal: No swelling, No calf pain Female : No dysuria Heme: No abnormal bleeding/bruising Skin: No rash Medications Current Inpatient Medications Medications (Trade) Dose Ordered Sig/Johanne Route Start Time Stop Time Status Last Admin Dose Admin Heparin Sodium (Porcine) (Heparin Sq 5000 Unit/0.5ml) 5,000 unit Q12 SQ 04/14/17 09:00 05/14/17 08:59 04/20/17 08:28 5,000 UNIT Al Hydrox/Mg Hydrox/Simethicone (Maalox Max Susp) 15 ml Q4H PRN PO 04/13/17 23:30 05/13/17 23:29 Magnesium Hydroxide (Milk Of Magnesia Susp) 30 ml Q12H PRN PO 04/13/17 23:30 05/13/17 23:29 Nitroglycerin (Nitrostat Tab) 0.4 mg UD PRN SL 04/13/17 23:30 05/13/17 23:29 Aspirin (Ecotrin Tab) 81 mg DAILY PO 04/14/17 09:00 05/14/17 08:59 04/20/17 08:27 81 MG Atorvastatin Calcium (Lipitor Tab) 20 mg QDD PO 04/14/17 16:45 05/14/17 17:59 04/20/17 16:27 20 MG Montelukast Sodium (Singulair Tab) 10 mg HS PO 04/14/17 21:00 05/14/17 20:59 04/19/17 21:27 10 MG Ranitidine HCl (zANTac TAB) 150 mg QAM PO 04/14/17 09:00 05/14/17 08:59 04/20/17 08:28 150 MG Calcium/Vitamin D (Caltrate Plus Tab) 1 tab BID PO 04/14/17 09:00 05/14/17 08:59 04/20/17 08:27 1 TAB Cholecalciferol (Vitamin D Tab) 2,000 inter.unit QAM PO 04/14/17 09:00 05/14/17 08:59 04/20/17 08:28 2,000 INTER.UNIT Donepezil HCl (Aricept Tab) 10 mg QAM PO 04/14/17 09:00 05/14/17 08:59 04/20/17 08:27 10 MG Multivitamins/ Minerals (Multivitamin W/ Minerals Tab) 1 tab QAM PO 04/14/17 09:00 05/14/17 08:59 04/20/17 08:28 1 TAB Ondansetron HCl (Zofran Odt) 8 mg Q6H PRN PO 04/13/17 23:45 05/13/17 23:44 04/17/17 00:36 8 MG Metoprolol Tartrate (Lopressor Tab) 25 mg BID PO 04/14/17 21:00 05/14/17 20:59 04/19/17 19:44 25 MG Psyllium Hydrophilic Mucilloid (Metamucil Powder) 1 pkt QAM PO 04/17/17 16:00 05/17/17 15:59 04/20/17 08:27 1 PKT Acetaminophen (Tylenol Tab) 1,000 mg Q8 PRN PO 04/18/17 14:00 05/15/17 13:59 Objective Vital Signs Date Time Temp Pulse Resp B/P (MAP) Pulse Ox O2 Delivery O2 Flow Rate FiO2 04/20/17 15:37 36.9 67 18 132/69 (90) 94 Room Air 04/20/17 08:25 36.7 57 18 133/69 (90) 93 Room Air 04/20/17 08:02 Room Air 04/20/17 01:00 36.9 56 18 121/61 (81) 96 Room Air 04/20/17 00:09 Room Air 04/19/17 19:46 64 120/56 (77) Physical Exam General Appearance: WD/WN, no apparent distress ENT: hearing grossly normal Neck: supple, no JVD, trachea midline Respiratory/Chest: lungs clear, normal breath sounds, no respiratory distress, no accessory muscle use Cardiovascular: regular rate, rhythm, no gallop, no murmur Abdomen: normal bowel sounds, non tender, soft Extremities: no pedal edema, no calf tenderness Neurologic/Psychiatric: alert Skin: normal color Assessment and Plan Ms. Loya is an 86 year old woman with viral illness likely influenza Viral Illness: Suspect Flu - Renally dosed with Tamiflu and completed therapy - even though rapid testing negative, she had sick exposures and clinically supports flu - Yesterday she had rhonchi but CXR was unremarkable - lungs today sound clear - Can continue Tylenol PRN - has remained afebrile Elevated Troponin/Type 2 MT from Illness and Chronic HTN/HLD: - ASA 81 mg daily and Atorvastatin 20 mg daily - Metoprolol 25 mg BID - may consider lowering dosage given some bradycardia - maybe contributing to generalized weakness? - Cardiology following - recommend D/C Lisinopril in favor of BB DVT Prophylaxis: Heparin 5000 SC Q12H Code Status: FULL RESUSCITATION Disposition: - Evaluations today suggesting benefits from rehab and son agrees - Patient would be medically optimal for discharge if safe disposition in place - [facility] auth placed Continued [facility] stay due to: ambulation difficulties Discharge planning: rehab hospital
[2017-04-20] MEDS: MONTELUKAST SOD 10 MG TAB PO SCH (19:38)
[2017-04-21] VITALS: BP 135/69; PULSE 55; TEMP 36.9; O2SAT 97
[2017-04-21 07:45] VITALS: BP 124/66; PULSE 66; TEMP 37; O2SAT 95
[2017-04-21] MEDS: METOPROLOL TARTRATE 25 MG TAB PO SCH ×2 (07:47→20:37)
[2017-04-21] MEDS: CEROVITE ADV FORMULA TAB PO SCH (07:47)
[2017-04-21] MEDS: CHOLECALCIFEROL 1000 INTER.UNIT TAB PO SCH (07:47)
[2017-04-21] MEDS: RANITIDINE HCL 150 MG TAB PO SCH (07:47)
[2017-04-21] MEDS: PSYLLIUM 58.6% PWD PACK S\\F PO SCH (07:47)
[2017-04-21] MEDS: DONEPEZIL HCL 10 MG TAB PO SCH (07:48)
[2017-04-21] MEDS: CALCIUM 600MG + VIT D 400 IU TAB PO SCH ×2 (07:48→20:37)
[2017-04-21] MEDS: ASPIRIN 81 MG ECTAB PO SCH (07:48)
[2017-04-21] MEDS: HEPARIN SOD 5000 UNIT/0.5 ML CARP SQ SCH ×2 (07:50→20:39)
--- NOTE | 2017-04-21 13:50 | Hospitalist Progress Note ---
Hospitalist Progress Note Date of Service Apr 21, 2017. Subjective Pt evaluation today including: conversation w/ patient, conversation w/ family , physical exam, chart review, review of inpatient medication list Patient seen and evaluated. Feeling well today but still complaining of generalized weakness. Sitting up in chair more. Son was at bedside and did discuss plan with him. Awaiting rehab approval. If cannot go she would like home services with PT/OT. Will await. Patient would be cleared for D/C pending rehab approval. Constitutional: No fever, No chills Respiratory: + cough, No shortness of breath Cardiovascular: No chest pain Abdomen: No pain, No nausea, No vomiting, No diarrhea, No constipation Musculoskeletal: No calf pain Female : No dysuria Medications Current Inpatient Medications Medications (Trade) Dose Ordered Sig/Johanne Route Start Time Stop Time Status Last Admin Dose Admin Heparin Sodium (Porcine) (Heparin Sq 5000 Unit/0.5ml) 5,000 unit Q12 SQ 04/14/17 09:00 05/14/17 08:59 04/21/17 07:50 5,000 UNIT Al Hydrox/Mg Hydrox/Simethicone (Maalox Max Susp) 15 ml Q4H PRN PO 04/13/17 23:30 05/13/17 23:29 Magnesium Hydroxide (Milk Of Magnesia Susp) 30 ml Q12H PRN PO 04/13/17 23:30 05/13/17 23:29 Nitroglycerin (Nitrostat Tab) 0.4 mg UD PRN SL 04/13/17 23:30 05/13/17 23:29 Aspirin (Ecotrin Tab) 81 mg DAILY PO 04/14/17 09:00 05/14/17 08:59 04/21/17 07:48 81 MG Atorvastatin Calcium (Lipitor Tab) 20 mg QDD PO 04/14/17 16:45 05/14/17 17:59 04/20/17 16:27 20 MG Montelukast Sodium (Singulair Tab) 10 mg HS PO 04/14/17 21:00 05/14/17 20:59 04/20/17 19:38 10 MG Ranitidine HCl (zANTac TAB) 150 mg QAM PO 04/14/17 09:00 05/14/17 08:59 04/21/17 07:47 150 MG Calcium/Vitamin D (Caltrate Plus Tab) 1 tab BID PO 04/14/17 09:00 05/14/17 08:59 04/21/17 07:48 1 TAB Cholecalciferol (Vitamin D Tab) 2,000 inter.unit QAM PO 04/14/17 09:00 05/14/17 08:59 04/21/17 07:47 2,000 INTER.UNIT Donepezil HCl (Aricept Tab) 10 mg QAM PO 04/14/17 09:00 05/14/17 08:59 04/21/17 07:48 10 MG Multivitamins/ Minerals (Multivitamin W/ Minerals Tab) 1 tab QAM PO 04/14/17 09:00 05/14/17 08:59 04/21/17 07:47 1 TAB Ondansetron HCl (Zofran Odt) 8 mg Q6H PRN PO 04/13/17 23:45 05/13/17 23:44 04/17/17 00:36 8 MG Metoprolol Tartrate (Lopressor Tab) 25 mg BID PO 04/14/17 21:00 05/14/17 20:59 04/21/17 07:47 25 MG Psyllium Hydrophilic Mucilloid (Metamucil Powder) 1 pkt QAM PO 04/17/17 16:00 05/17/17 15:59 04/21/17 07:47 1 PKT Acetaminophen (Tylenol Tab) 1,000 mg Q8 PRN PO 04/18/17 14:00 05/15/17 13:59 Objective Vital Signs Date Time Temp Pulse Resp B/P (MAP) Pulse Ox O2 Delivery O2 Flow Rate FiO2 04/21/17 09:00 Room Air 04/21/17 07:45 37.0 66 16 124/66 (85) 95 04/21/17 00:00 Room Air 04/21/17 00:00 36.9 55 20 135/69 (91) 97 Room Air 04/20/17 16:00 Room Air 04/20/17 15:37 36.9 67 18 132/69 (90) 94 Room Air Physical Exam General Appearance: WD/WN, no apparent distress Neck: no JVD Respiratory/Chest: lungs clear, normal breath sounds, no respiratory distress, no accessory muscle use Cardiovascular: regular rate, rhythm Abdomen: normal bowel sounds, non tender, soft Extremities: no pedal edema Neurologic/Psychiatric: alert Skin: normal color Assessment and Plan Ms. Loya is an 86 year old woman with viral illness likely influenza Viral Illness: Suspect Flu - RESOLVING - Renally dosed with Tamiflu and completed therapy - even though rapid testing negative, she had sick exposures and clinically supports flu - Can continue Tylenol PRN - has remained afebrile - Continues with non-productive cough and generalized weakness - saurabh otherwise Elevated Troponin/Type 2 OH from Illness and Chronic HTN/HLD: - ASA 81 mg daily and Atorvastatin 20 mg daily - Metoprolol 25 mg BID - may consider lowering dosage given some bradycardia - maybe contributing to generalized weakness? will leave at current dose at this time - Cardiology followed - recommend D/C Lisinopril in favor of BB DVT Prophylaxis: Heparin 5000 SC Q12H Code Status: FULL RESUSCITATION Disposition: - Patient would be medically optimal for discharge if safe disposition in place - [facility] auth placed vs home with [facility] Continued [facility] stay due to: ambulation difficulties Discharge planning: rehab hospital
[2017-04-21 16:20] VITALS: BP 125/64; PULSE 68; TEMP 36.8; O2SAT 97
[2017-04-21] MEDS: ATORVASTATIN 20 MG TAB PO SCH (17:01)
[2017-04-21] MEDS: MONTELUKAST SOD 10 MG TAB PO SCH (20:37)
[2017-04-22 00:30] VITALS: BP 146/75; PULSE 60; TEMP 36.6; O2SAT 97
[2017-04-22 07:15] VITALS: BP 138/70; PULSE 60; TEMP 36.8; O2SAT 97
[2017-04-22] MEDS: ASPIRIN 81 MG ECTAB PO SCH (07:34)
[2017-04-22] MEDS: DONEPEZIL HCL 10 MG TAB PO SCH (07:34)
[2017-04-22] MEDS: CALCIUM 600MG + VIT D 400 IU TAB PO SCH ×2 (07:34→21:16)
[2017-04-22] MEDS: PSYLLIUM 58.6% PWD PACK S\\F PO SCH (07:34)
[2017-04-22] MEDS: RANITIDINE HCL 150 MG TAB PO SCH (07:34)
[2017-04-22] MEDS: METOPROLOL TARTRATE 25 MG TAB PO SCH ×2 (07:34→20:00)
[2017-04-22] MEDS: CHOLECALCIFEROL 1000 INTER.UNIT TAB PO SCH (07:34)
[2017-04-22] MEDS: CEROVITE ADV FORMULA TAB PO SCH (07:34)
[2017-04-22] MEDS: HEPARIN SOD 5000 UNIT/0.5 ML CARP SQ SCH ×2 (07:35→21:07)
--- NOTE | 2017-04-22 14:21 | Progress Note ---
Subjective Date of Service: Apr 22, 2017. Subjective Pt evaluation today including: conversation w/ patient, physical exam, chart review, lab review, review of studies, conversation w/ product marketing consultant, review of inpatient medication list Continue doing fairly okay, eating drinking good, no complaints Problem List Medical Problems: (1) Cough Status: Acute (2) Dehydration Status: Acute (3) Elevated troponin Status: Acute (4) Gastroenteritis Status: Acute (5) Influenza-like illness Status: Acute (6) Nausea Status: Acute (7) Weakness Status: Acute Review of Systems Constitutional: + weakness, + fatigue, No fever, No chills, No sweats, No weight loss, No problem reported Eyes: No worsening of vision, No eye pain, No redness, No discharge, No diplopia ENT: No hearing loss, No unusual epistaxis, No nasal symptoms, No sore throat, No tinnitus, No dental problems, No trouble swallowing Respiratory: + cough, No sputum, No wheezing, No shortness of breath, No dyspnea on exertion, No dyspnea at rest, No hemoptysis Cardiac: No chest pain, No orthopnea, No PND, No edema, No claudication, No palpitations Abdomen: No pain, No nausea, No vomiting, No diarrhea, No constipation Musculoskeletal: No joint pain, No muscle pain, No swelling, No calf pain Female : No dysuria, No urinary frequency, No hematuria, No incontinence, No abnormal vaginal bleeding, No vaginal discharge Neurologic: No memory loss, No paralysis, No weakness, No numbness/tingling, No vertigo, No balance problems Psychiatric: No depression symptoms, No anhedonism, No anxiety, No insomnia, No substance abuse Heme: No abnormal bleeding/bruising, No clotting problems, No swollen lymph nodes, No night sweats Endo: No fatigue, No excessive thirst, No excessive urination Skin: No rash, No itch, No new/changing skin lesions, No color change, No bleeding Objective Vital Signs Date Time Temp Pulse Resp B/P (MAP) Pulse Ox O2 Delivery O2 Flow Rate FiO2 04/22/17 08:45 Room Air 04/22/17 07:15 36.8 60 16 138/70 (92) 97 Room Air 04/22/17 00:30 36.6 60 18 146/75 (98) 97 Room Air 04/22/17 00:25 Room Air 04/21/17 16:20 36.8 68 20 125/64 (84) 97 Room Air 04/21/17 15:40 Room Air Physical Exam General Appearance: WD/WN, no apparent distress Eyes: normal inspection, PERRL, EOMI, sclerae normal ENT: normal ENT inspection, hearing grossly normal, pharynx normal Neck: supple, no adenopathy, thyroid normal, no JVD, no carotid bruits, trachea midline Respiratory/Chest: chest non-tender, normal breath sounds, no respiratory distress, no accessory muscle use, + decreased breath sounds Cardiovascular: regular rate, rhythm, no edema, no gallop, no JVD, no murmur Abdomen: normal bowel sounds, non tender, soft, no organomegaly, no pulsatile mass Extremities: normal range of motion, non-tender, normal inspection, no pedal edema, no calf tenderness, normal capillary refill, pelvis stable Neurologic/Psychiatric: access control specialist II-XII nml as tested, no motor/sensory deficits, alert, normal mood/affect, oriented x 3 Skin: normal color, warm/dry, no rash Lymphatic: no adenopathy Assessment and Plan 86 year old female with viral illness likely influenza, completed full course of Tamiflu treatment, Elevated Troponin/Type 2 TX from Illness and Chronic HTN/ HLD, stable, continue current medication, patient lives with son, son not always at home, PT OT to reevaluation indicated patient may benefit from rehab, or longterm rehab, However patient's insurance is not in the network of [facility], and [facility], case management director is looking for to set the home health care, and patient's son is not at home, and case management director is setting up home health care, so plan discharge tomorrow Continued [facility] stay due to: ambulation difficulties Discharge planning: home with home health
[2017-04-22 15:18] VITALS: BP 101/52; PULSE 62; TEMP 36.8; O2SAT 96
[2017-04-22] MEDS: ATORVASTATIN 20 MG TAB PO SCH (16:37)
[2017-04-22 21:00] VITALS: BP 121/65; PULSE 58; O2SAT 89; O2SAT 97
[2017-04-22 21:15] VITALS: O2SAT 97
[2017-04-22] MEDS: MONTELUKAST SOD 10 MG TAB PO SCH (21:28)
[2017-04-22 23:18] VITALS: BP 159/60; PULSE 55; TEMP 36.7; O2SAT 99
[2017-04-23 07:25] VITALS: BP 123/70; PULSE 61; TEMP 36.7; O2SAT 99
[2017-04-23] MEDS: DONEPEZIL HCL 10 MG TAB PO SCH (07:39)
[2017-04-23] MEDS: METOPROLOL TARTRATE 25 MG TAB PO SCH (07:39)
[2017-04-23] MEDS: RANITIDINE HCL 150 MG TAB PO SCH (07:39)
[2017-04-23] MEDS: HEPARIN SOD 5000 UNIT/0.5 ML CARP SQ SCH (07:39)
[2017-04-23] MEDS: ASPIRIN 81 MG ECTAB PO SCH (07:39)
[2017-04-23] MEDS: CEROVITE ADV FORMULA TAB PO SCH (07:39)
[2017-04-23] MEDS: PSYLLIUM 58.6% PWD PACK S\\F PO SCH (07:39)
[2017-04-23] MEDS: CALCIUM 600MG + VIT D 400 IU TAB PO SCH (07:39)
[2017-04-23] MEDS: CHOLECALCIFEROL 1000 INTER.UNIT TAB PO SCH (08:10)
[2017-04-23] MEDS ORDERED: LPR25 PO (08:57)
--- NOTE | 2017-04-23 09:02 | Discharge Instructions ---
Discharge Instructions Date of Service Apr 23, 2017. Admission Reason for Admission: Elevated Troponin, Influenza-Like Illness Discharge Discharge Diagnosis / Problem: Viral Illness Discharge Goals Goal(s): Decrease discomfort, Improve function, Increase independence Activity Recommendations Activity Limitations: resume your previous activity . Instructions / Follow-Up Instructions / Follow-Up Viral Illness possible Influenza: - You have completed treatment for this - Recommend to talk walks when you can to keep your strength and energy up. Elevated Cardiac Markers: - This was related to the viral illness and are improved - However to protect your heart and give you blood pressure control you medications were changed -- STOP LISINOPRIL - DO NOT TAKE THIS MEDICATION -- START METOPROLOL 25 MG TWICE A DAY - YOU HAVE BEEN GETTING THIS MEDICATION IN THE HOSPITAL - We will assist with follow-up appointments from your family doctor and heart doctor - this new medication can cause your heart rate to beat slow. You may need to have a lower dose if these becomes an issue and please discuss this medication with your family doctor Current Hospital Diet Patient's current hospital diet: AHA Diet (Heart Healthy) Discharge Diet Recommended Diet: AHA Diet (Heart Healthy) Pending Studies Studies pending at discharge: no Laboratory Results Hemoglobin A1c Test 04/14/17 05:46 Range/Units Estimated Average Glucose 128 mg/dl Hemoglobin A1c 6.1 H 4.5-5.6 % Lipid Panel Test 04/14/17 05:46 Range/Units Triglycerides Level 95 0-150 mg/dl Cholesterol Level 91 0-200 mg/dl HDL Cholesterol 44 mg/dl Cholesterol/HDL Ratio 2.1 LDL Cholesterol, Calculated 28 mg/dl Medical Emergencies . Who to Call and When: Medical Emergencies: If at any time you feel your situation is an emergency, please call 911 immediately. . Non-Emergent Contact Non-Emergency issues call your: Primary Care Provider Call Non-Emergent contact if: you have a fever, your pain is concerning you, you have any medication questions . . "Provider Documentation" section prepared by Viktoria Sofia. .
[2017-04-23 12:03] VITALS: BP 123/70; PULSE 61; TEMP 36.7; O2SAT 99
--- NOTE | 2017-04-23 15:08 | Discharge Summary ---
Discharge Summary Date of Service Apr 23, 2017. Discharge Summary Admission Date: Apr 13, 2017 at 23:28 Discharge Date: Apr 23, 2017 Discharge Disposition: Home with services Principal Diagnosis: Viral Illness - Possible Influenza Immunizations: Have You Had Influenza Vaccine: N/A Influenza Vaccine Date: Nov 15, 2008 History of Tetanus Vaccine?: Yes Tetanus Immunization Date: Aug 27, 2010 History of Pneumococcal: Yes History of Hepatitis B Vaccine: No Procedures: SINGLE VIEW CHEST FINDINGS: An AP, portable, upright chest radiograph is compared to study dated 11/03/2016. The examination is degraded by portable technique and patient rotation. The heart is mildly enlarged and there is atherosclerotic calcification of the thoracic aorta. The pulmonary vasculature is noncongested. Chronic interstitial thickening is similar to previous. The lungs and pleural spaces are clear. No pneumothorax is seen. The skeletal structures are osteopenic. Degenerative change is seen throughout the thoracic spine. IMPRESSION: Mild cardiac enlargement with no acute cardiopulmonary abnormality. Consultations: 1. Cardiology 2. PT/OT Medication Reconciliation New Medications: Metoprolol Tartrate (Lopressor) 25 Mg Tab 25 MG PO BID for 30 Days, #60 TAB Continued Medications: Aspirin (Aspirin Ec) 81 Mg Tab 81 MG PO DAILY Atorvastatin (Lipitor) 20 Mg Tab 20 MG PO QDD Calcium Carbonate (Caltrate 600) 1,500 Mg Tab 1500 MG PO DAILY Cholecalciferol (D3 2000) 2,000 Unit Tab 2000 UNITS PO DAILY Donepezil Hydrochloride (Donepezil Hcl) 23 Mg Tab 23 MG PO DAILY Montelukast Sod (Montelukast Sodium) 10 Mg Tab 10 MG PO DAILY Multiple Vitamins W/ Minerals (Centrum Silver) 1 Chw Chw 1 TAB PO DAILY Ondasetron Odt (Zofran Odt) 4 Mg Tab 4 MG SL Q6H PRN for Nausea or Vomiting, #6 TAB Ranitidine (Zantac) 150 Mg Tab 150 MG PO QAM, TAB Discontinued Medications: Lisinopril (Lisinopril) 10 Mg Tab 10 MG PO DAILY Discharge Exam Review of Systems: Constitutional: No fever, No chills ENT: No nasal symptoms, No sore throat Respiratory: No cough, No sputum, No shortness of breath Cardiovascular: No chest pain Abdomen: No pain, No nausea, No vomiting, No diarrhea, No constipation Musculoskeletal: No swelling, No calf pain Genitourinary - Female: No dysuria Hematologic / Lymphatic: No abnormal bleeding/bruising Physical Exam: General Appearance: WD/WN, no apparent distress Eyes: sclerae normal ENT: hearing grossly normal Neck: supple, no JVD, trachea midline Respiratory/Chest: lungs clear, normal breath sounds, no respiratory distress, no accessory muscle use Cardiovascular: regular rate, rhythm, no gallop, no murmur Abdomen / GI: normal bowel sounds, non tender, soft Extremities: no pedal edema Neurologic/Psychiatric: alert Skin: normal color, warm/dry Hospital Course ADMISSION: The patient is an 86-year-old female who presents to the emergency department with her son whom she lives with, with complaint of moderate flulike symptoms that began a few days prior to arrival. Her son has been diagnosed with influenza A, and he was concerned that she may have to same diagnosis. She did not receive empiric treatment when he was diagnosed. Her son reports that she has been eating and drinking less over the past several days. She has continued to take her medications as directed. Contribution to the HPI is significantly limited by severe fatigue, and she fell asleep. HOSPITAL COURSE: Ms. Loya was admitted for viral illness likely influenza even though tested negative. She completed a course of renally dosed Tamiflu. She also presented with elevated troponins likely in the setting of demand ischemia from illness. Cardiology recommended that her Lisinopril be D/C'd in favor of BB therapy. Metoprolol 25 mg BID initiated. Will need to monitor for bradycardia and may need to consider lower dosing if necessary. Due to generalized weakness, acute rehab vs SNF was recommended. Unfortunately rehab was denied and SNF is not affordable. She will be D/C'd home with home health services. Total Time Spent: Greater than 30 minutes This includes examination of the patient, discharge planning, medication reconciliation, and communication with other providers. Discharge Instructions Please refer to the electronic Patient Visit Report (Discharge Instructions) for additional information. Additional Copies To Nia Rich PA-C
[2017-04-23 16:04] VITALS: BP 137/60; PULSE 57; TEMP 36.9; O2SAT 98
[2017-04-23] MEDS: ATORVASTATIN 20 MG TAB PO SCH (16:40)
== END 2017-04-23 18:35 | disposition home health service (06) | DRG 152 ==
LOC: C.EDB 19:27 → C.2T 23:28 → ENRESERV 23:38 → C.MS4W 04-15 17:22
PROVIDERS: ADMIT Hospitalist; ATTEND Hospitalist
DX: J11.1 Influenza due to unidentified influenza virus with other respiratory manifestations (principal); I21.A1 Myocardial infarction type 2; F03.90 Unspecified dementia, unspecified severity, without behavioral disturbance, psychotic disturbance, mood disturbance, and anxiety; I10 Essential (primary) hypertension; K21.9 Gastro-esophageal reflux disease without esophagitis; Z79.82 Long term (current) use of aspirin; R79.89 Other specified abnormal findings of blood chemistry; K57.90 Diverticulosis of intestine, part unspecified, without perforation or abscess without bleeding; Z88.0 Allergy status to penicillin